=== PATIENT | female | born 1995 | race Caucasian/White ===

== ENCOUNTER 2016-10-18 03:28 | Emergency (ER) | payer OTHER ==
[2016-10-18 03:39] VITALS: RESP 20
[2016-10-18] MEDS ORDERED: IBUPROFEN 600 MG TAB PO STA (04:18)
[2016-10-18] MEDS ORDERED: ONDANSETRON ODT 4 MG TAB PO STA (04:22)
--- NOTE | 2016-10-18 04:54 | XR ---
EXAMINATION TYPE: XR chest 2V DATE OF EXAM: 10/18/2016 4:32 AM COMPARISON: 07/05/2016 HISTORY: Upper back pain TECHNIQUE: Frontal and lateral views of the chest are obtained. FINDINGS: There is no focal air space opacity, pleural effusion, or pneumothorax seen. The cardiac silhouette size is within normal limits. The osseous structures are intact. IMPRESSION: 1. No acute cardiopulmonary process. 2. No significant interval change.
[2016-10-18 05:25] VITALS: BP 118/61; PULSE 91; TEMP 98.3
--- NOTE | 2016-10-18 05:25 | ED ---
Back Pain HPI - General Chief Complaint: Back Pain/Injury Stated Complaint: Shoulder Pain Time Seen by Provider: 10/18/16 03:59 Source: patient - History of Present Illness Initial Comments: This patient is a 21-year-old woman who states that about 3 and afternoon she noticed pain just below her left scapula, that she is describing as an aching, constant, moderate, but worse with moving. She states that she went to work and tried to work but that the pain was too much. MD Complaint: back injury Onset/Timin -: hour(s) Place: home Radiation: none Severity: moderate Quality: aching Consistency: constant Improves With: none Worsens With: movement Associated Symptoms: denies other symptoms - Related Data Home Medications Medication Instructions Recorded Confirmed Hydralazine (Unknown Dose) 1 tab PO DAILY PRN 07/05/16 10/18/16 Levomilnacipran Hydrochloride 40 mg PO PC-LUNCH 07/05/16 10/18/16 [Fetzima] Previous Rx's Medication Instructions Recorded Ibuprofen [Motrin] 600 mg PO Q8HR PRN #20 tab 10/18/16 Allergies Allergy/AdvReac Type Severity Reaction Status Date / Time DUST Allergy Unknown SNEEZING, Uncoded 10/18/16 03:39 RUNNY NOSE. Review of Systems ROS Statement: Those systems with pertinent positive or pertinent negative responses have been documented in the HPI. ROS Other: All systems not noted in ROS Statement are negative. Constitutional: Denies: fever, chills Respiratory: Denies: cough, dyspnea, wheezes, hemoptysis Cardiovascular: Denies: chest pain, palpitations, edema, syncope Gastrointestinal: Denies: abdominal pain Genitourinary: Denies: dysuria, hematuria, discharge, abnormal menses Musculoskeletal: Reports: as per HPI, back pain Skin: Denies: rash Neurological: Denies: headache Past Medical History Past Medical History: No Reported History History of Any Multi-Drug Resistant Organisms: None Reported Past Surgical History: No Surgical Hx Reported Past Anesthesia/Blood Transfusion Reactions: No Reported Reaction Past Psychological History: Depression Smoking Status: Never smoker Past Alcohol Use History: Occasional Past Drug Use History: None Reported - Past Family History Mother Family Medical History: No Reported History General Exam General appearance: alert, in no apparent distress Head exam: Present: atraumatic, normocephalic Respiratory exam: Present: normal lung sounds bilaterally. Absent: respiratory distress, wheezes, rales, rhonchi, stridor Cardiovascular Exam: Present: regular rate, normal rhythm, normal heart sounds. Absent: systolic murmur, diastolic murmur, rubs, gallop GI/Abdominal exam: Present: soft. Absent: distended, tenderness, guarding, rebound Extremities exam: Absent: pedal edema, calf tenderness Back exam: Present: tenderness, other (Just inferior and towards the lateral aspect of the scapula the patient does have 2 small early contusions. Palpation there does reproduce the patient's pains. No palpable bony deformity. ). Absent: CVA tenderness (R), CVA tenderness (L), vertebral tenderness Neurological exam: Present: alert, normal gait Skin exam: Present: warm, dry, intact, normal color. Absent: rash Course Vital Signs 10/18/16 10/18/16 03:35 05:24 Temperature 97.3 F L 98.3 F Pulse Rate 120 H 91 Respiratory 20 20 Rate Blood Pressure 123/64 118/61 O2 Sat by Pulse 98 98 Oximetry Disposition Clinical Impression: Contusion Disposition: HOME SELF-CARE Condition: Good Instructions: Contusion in Adults (ED) Prescriptions: Ibuprofen [Motrin] 600 mg PO Q8HR PRN #20 tab PRN Reason: Pain Referrals: Maru Gan MD [Primary Care Provider] - 1-2 days
== END 2016-10-18 05:43 | disposition home or self-care (01) ==
LOC: EC 03:28
DX: S20.222A Contusion of left back wall of thorax, initial encounter (principal); Z91.048 Other nonmedicinal substance allergy status; F32.9 Major depressive disorder, single episode, unspecified; X58.XXXA Exposure to other specified factors, initial encounter
CPT/HCPCS: 71020; 93005; 99283

== ENCOUNTER 2016-11-26 13:01 | Emergency (ER) | payer OTHER ==
[2016-11-26] MEDS ORDERED: KETOROLAC 30 MG/ML 1 ML VIAL IVP STA ×2 (13:23→15:59)
[2016-11-26] MEDS ORDERED: ONDANSETRON 4 MG/2 ML VIAL IVP STA (13:23)
[2016-11-26] MEDS ORDERED: MORPHINE SULFATE 4 MG/ML SYRINGE IVP STA (13:23)
--- NOTE | 2016-11-26 13:28 | ED ---
Abdominal Pain HPI - General Chief Complaint: Abdominal Pain Stated Complaint: Abdominal Pain Time Seen by Provider: 11/26/16 13:10 Source: patient, RN notes reviewed Mode of arrival: ambulatory Limitations: no limitations - History of Present Illness Initial Comments: 21-year-old female presents emergency Department chief complaint of right lower quadrant abdominal pain. Patient states that she's been having pain for one week. Patient was seen at [facility] and was told she had multiple ovarian cysts in the right. She states pain is worsening. Patient denies fever , chills. She states she's had some nausea denies vomiting, diarrhea, constipation. Patient states she gets double shots every 3 months states she has not had a menstrual cycle and 2 years. Patient states she's had no abdominal surgeries. Patient denies any dysuria or hematuria. - Related Data Home Medications Medication Instructions Recorded Confirmed Levomilnacipran Hydrochloride 40 mg PO PC-LUNCH 07/05/16 11/26/16 [Fetzima] Ibuprofen [Advil] 600 mg PO Q8HR PRN 11/26/16 11/26/16 traMADol HCL [Ultram] 50 mg PO Q4HR PRN 11/26/16 11/26/16 Allergies Allergy/AdvReac Type Severity Reaction Status Date / Time DUST Allergy Unknown SNEEZING, Uncoded 10/18/16 03:39 RUNNY NOSE. Review of Systems ROS Statement: Those systems with pertinent positive or pertinent negative responses have been documented in the HPI. ROS Other: All systems not noted in ROS Statement are negative. Past Medical History Past Medical History: No Reported History Additional Past Medical History / Comment(s): ovarian cyst History of Any Multi-Drug Resistant Organisms: None Reported Past Surgical History: No Surgical Hx Reported Past Anesthesia/Blood Transfusion Reactions: No Reported Reaction Past Psychological History: Depression Smoking Status: Never smoker Past Alcohol Use History: Occasional Past Drug Use History: None Reported - Past Family History Mother Family Medical History: No Reported History General Exam Limitations: no limitations General appearance: alert, in no apparent distress Head exam: Present: atraumatic, normocephalic, normal inspection Neck exam: Present: normal inspection, full ROM. Absent: tenderness, meningismus, lymphadenopathy Respiratory exam: Present: normal lung sounds bilaterally. Absent: respiratory distress, wheezes, rales, rhonchi, stridor Cardiovascular Exam: Present: regular rate, normal rhythm, normal heart sounds. Absent: systolic murmur, diastolic murmur, rubs, gallop, clicks GI/Abdominal exam: Present: soft, tenderness (mild to moderate tenderness lower quadrant), normal bowel sounds. Absent: distended, guarding, rebound, rigid Back exam: Absent: CVA tenderness (R) Neurological exam: Present: alert, oriented X3, CN II-XII intact Skin exam: Present: warm, dry, intact, normal color. Absent: rash Course Vital Signs 11/26/16 13:05 Temperature 97.2 F L Pulse Rate 122 H Respiratory 20 Rate Blood Pressure 134/92 O2 Sat by Pulse 100 Oximetry Medical Decision Making - Medical Decision Making 21-year-old male present emergency department for 1 week worth history of breath quadrant abdominal pain. Patient ultrasound shows multiple follicles no dominant cyst. Patient CT does not show any evidence of appendicitis though not fully visualized shows no inflammatory process. Patient's had no fever as normal white count. This less likely to be appendicitis. Patient does have large dilation of some loose of on that side, some stool. This may be related to bowel spasms. Patient will be given magnesium citrate to go home with and she is to follow-up with primary care physician. - Lab Data Result diagrams: 11/26/16 14:00 11/26/16 14:00 Lab Results 11/26/16 11/26/16 11/26/16 Range/Units 14:00 14:00 14:02 WBC 5.6 (3.8-10.6) k/uL RBC 4.64 (3.80-5.40) m/uL Hgb 14.2 (11.4-16.0) gm/dL Hct 41.7 (34.0-46.0) % MCV 89.8 (80.0-100.0) fL MCH 30.5 (25.0-35.0) pg MCHC 33.9 (31.0-37.0) g/dL RDW 12.7 (11.5-15.5) % Plt Count 213 (150-450) k/uL Neutrophils % 66 % Lymphocytes % 27 % Monocytes % 3 % Eosinophils % 1 % Basophils % 1 % Neutrophils # 3.7 (1.3-7.7) k/uL Lymphocytes # 1.5 (1.0-4.8) k/uL Monocytes # 0.2 (0-1.0) k/uL Eosinophils # 0.0 (0-0.7) k/uL Basophils # 0.0 (0-0.2) k/uL Sodium 143 (137-145) mmol/L Potassium 4.0 (3.5-5.1) mmol/L Chloride 109 H (98-107) mmol/L Carbon Dioxide 22 (22-30) mmol/L Anion Gap 12 mmol/L BUN 9 (7-17) mg/dL Creatinine 0.70 (0.52-1.04) mg/dL Est GFR (MDRD) Af Amer >60 (>60 ml/min/1.73 sqM) Est GFR (MDRD) Non-Af >60 (>60 ml/min/1.73 sqM) Glucose 84 (74-99) mg/dL Calcium 9.7 (8.4-10.2) mg/dL Total Bilirubin 0.7 (0.2-1.3) mg/dL AST 22 (14-36) U/L ALT 26 (9-52) U/L Alkaline Phosphatase 87 (38-126) U/L Total Protein 7.6 (6.3-8.2) g/dL Albumin 4.5 (3.5-5.0) g/dL Amylase 55 (30-110) U/L Lipase 98 (23-300) U/L Urine Color Urine Appearance (Clear) Urine pH (5.0-8.0) Ur Specific [place] (1.001-1.035) Urine Protein (Negative) Urine Glucose (UA) (Negative) Urine Ketones (Negative) Urine Blood (Negative) Urine Nitrate (Negative) Urine Bilirubin (Negative) Urine Urobilinogen (<2.0) mg/dL Ur Leukocyte Esterase (Negative) Urine HCG, Qual Not Detected (Not Detectd) 11/26/16 Range/Units 14:02 WBC (3.8-10.6) k/uL RBC (3.80-5.40) m/uL Hgb (11.4-16.0) gm/dL Hct (34.0-46.0) % MCV (80.0-100.0) fL MCH (25.0-35.0) pg MCHC (31.0-37.0) g/dL RDW (11.5-15.5) % Plt Count (150-450) k/uL Neutrophils % % Lymphocytes % % Monocytes % % Eosinophils % % Basophils % % Neutrophils # (1.3-7.7) k/uL Lymphocytes # (1.0-4.8) k/uL Monocytes # (0-1.0) k/uL Eosinophils # (0-0.7) k/uL Basophils # (0-0.2) k/uL Sodium (137-145) mmol/L Potassium (3.5-5.1) mmol/L Chloride (98-107) mmol/L Carbon Dioxide (22-30) mmol/L Anion Gap mmol/L BUN (7-17) mg/dL Creatinine (0.52-1.04) mg/dL Est GFR (MDRD) Af Amer (>60 ml/min/1.73 sqM) Est GFR (MDRD) Non-Af (>60 ml/min/1.73 sqM) Glucose (74-99) mg/dL Calcium (8.4-10.2) mg/dL Total Bilirubin (0.2-1.3) mg/dL AST (14-36) U/L ALT (9-52) U/L Alkaline Phosphatase (38-126) U/L Total Protein (6.3-8.2) g/dL Albumin (3.5-5.0) g/dL Amylase (30-110) U/L Lipase (23-300) U/L Urine Color Yellow Urine Appearance Clear (Clear) Urine pH 7.5 (5.0-8.0) Ur Specific [place] 1.011 (1.001-1.035) Urine Protein Negative (Negative) Urine Glucose (UA) Negative (Negative) Urine Ketones Negative (Negative) Urine Blood Negative (Negative) Urine Nitrate Negative (Negative) Urine Bilirubin Negative (Negative) Urine Urobilinogen <2.0 (<2.0) mg/dL Ur Leukocyte Esterase Negative (Negative) Urine HCG, Qual (Not Detectd) Disposition Clinical Impression: Abdominal pain Disposition: HOME SELF-CARE Condition: Stable Instructions: Abdominal Pain (ED) Additional Instructions: Please return to the Emergency Department if symptoms worsen or any other concerns. Time of Disposition: 16:01
[2016-11-26 14:11] LABS: Basophils % (A) 1 %; CH 30.2; CHCM 33.8; Eosinophils % (A) 1 %; HCT 41.7 % (34.0-46.0); HDW 2.36; HGB 14.2 gm/dL (11.4-16.0); Luc # (Auto) 0.12; Luc % (Auto) 2; Lymphocytes # (A) 1.5 k/uL (1.0-4.8); Lymphocytes % (A) 27 %; MCH 30.5 pg (25.0-35.0); MCHC 33.9 g/dL (31.0-37.0); MCV 89.8 fL (80.0-100.0); Mean Platelet Volume 7.8; Monocytes # (A) 0.2 k/uL (0-1.0); Monocytes % (A) 3 %; Neutrophils # (A) 3.7 k/uL (1.3-7.7); Neutrophils % (A) 66 %; RBC 4.64 m/uL (3.80-5.40); RDW 12.7 % (11.5-15.5); WBC 5.6 k/uL (3.8-10.6); WBC (Perox) 5.48
[2016-11-26 14:14] LABS: Appearance,Urine Clear (Clear); Bilirubin,Urine Negative (Negative); Glucose,Urine (UA) Negative (Negative); Ketones,Urine Negative (Negative); Leukocyte Esterase,Urine Negative (Negative); Nitrite,Urine Negative (Negative); PH, Urine 7.5 (5.0-8.0); Protein,Urine Negative (Negative); Specific Gravity,Urine 1.011 (1.001-1.035); UA Billing (MACRO vs. MICRO) CHEM; Urobilinogen,Urine <2.0 mg/dL (<2.0)
[2016-11-26 14:26] LABS: ALT 26 U/L (9-52); AST 22 U/L (14-36); Alkaline Phosphatase 87 U/L (38-126); Amylase 55 U/L (30-110); Anion Gap 12 mmol/L; Blood Urea Nitrogen 9 mg/dL (7-17); Calcium 9.7 mg/dL (8.4-10.2); Carbon Dioxide 22 mmol/L (22-30); Chloride 109 mmol/L (98-107); Glucose 84 mg/dL (74-99); Non-African American GFR(MDRD) >60 (>60 ml/min/1.73 sqM); Sodium 143 mmol/L (137-145); Total Bilirubin 0.7 mg/dL (0.2-1.3); Total Protein 7.6 g/dL (6.3-8.2)
--- NOTE | 2016-11-26 15:04 | US ---
EXAMINATION TYPE: US transvaginal DATE OF EXAM: 11/26/2016 2:28 PM COMPARISON: NONE CLINICAL HISTORY: Pain. Right pelvic pain x 1 week, getting worse. TECHNIQUE: Transvaginal (TV) Date of LMP: unknown, patient on Depo shot EXAM MEASUREMENTS: Uterus: 5.4 x 2.7 x 3.8 cm Endometrial Stripe: 0.1 cm Right Ovary: 2.5 x 1.7 x 2.6 cm Left Ovary: 2.3 x 1.5 x 1.5 cm FINDINGS: 1. Uterus: Anteverted 2. Endometrium: wnl 3. Right Ovary: multiple follicles 4. Left Ovary: follicles Spectral, color and waveform doppler imaging shows good arterial and venous flow within the ovaries ; there is no evidence for ovarian torsion. 5. Bilateral Adnexa: appears wnl 6. Posterior cul-de-sac: wnl IMPRESSION: 1. No acute process.
[2016-11-26] MEDS ORDERED: RX INFO: IV CONTRAST WAS GIVEN 1 EACH MISC MISCELLANE PRN (15:08)
--- NOTE | 2016-11-26 15:41 | CT ---
EXAMINATION TYPE: CT abdomen pelvis w con DATE OF EXAM: 11/26/2016 3:27 PM COMPARISON: NONE INDICATION: Right lower quadrant pain x 6 days with nausea and vomiting. DLP: 281.90 mGycm, Automated exposure control for dose reduction was used. CONTRAST: 100 mL of Omnipaque 300. Study performed without Oral Contrast TECHNIQUE: Axial images were obtained from above the diaphragm to the pubic rami in the axial plane a t 5 mm thick sections. Reconstructed images are reviewed on the computer in the coronal plane. FINDINGS: Limited CT sections are obtained the lung bases. The lung bases are clear. CT ABDOMEN: Liver: Normal Spleen: Normal Pancreas: Normal Adrenal glands: The adrenal glands are normal. Gallbladder: Normal Kidneys: No masses are evident. No hydronephrosis is present. No cysts are present. Delayed images were obtained through the kidneys, which remain unremarkable. Aorta: Normal Inferior vena cava: Normal. CT PELVIS: Loops of bowel within the abdomen and pelvis are normal. Appendix: Not clearly identified. No suspicious dilated tubular structure inflammatory change or brit[place] cecal fluid collection is evident. Urinary bladder: Normal. Genitourinary structures: Uterus and adnexal regions are unremarkable. Osseous structures: No suspicious lytic or sclerotic lesions. IMPRESSIONS: 1. No suspicious etiology for right lower quadrant pain is identified. 2. Appendix is not clearly identified although no secondary suspicious findings for acute appendiciti s are evident. Clinical management of any suspicion for acute appendicitis is recommended.
[2016-11-26] MEDS ORDERED: MAGNESIUM CITRATE 296 ML BOTTLE PO ONE (15:59)
[2016-11-26 16:48] VITALS: BP 108/57; PULSE 73; RESP 18; TEMP 98.8
== END 2016-11-26 16:48 | disposition home or self-care (01) ==
LOC: EC 13:01
DX: R10.31 Right lower quadrant pain (principal); Z91.048 Other nonmedicinal substance allergy status; F32.9 Major depressive disorder, single episode, unspecified; Z79.899 Other long term (current) drug therapy
CPT/HCPCS: 96374 ×2; 96375 ×3; 96376 ×2; 99284 ×2; 36415; 80053; 82150; 83690; 85025; 81003; 81025; 93975; 76830; 74177; J2270; J2405; J1885; Q9967

== ENCOUNTER → 2016-12-20 | Outpatient (CLI) | payer OTHER ==
--- NOTE | 2016-12-20 14:57 | NM ---
EXAMINATION TYPE: NM hepatobiliary w EF DATE OF EXAM: 12/20/2016 2:48 PM COMPARISON: CT abdomen pelvis 26 November 2016 HISTORY: Cholecystitis, right upper quadrant pain TECHNIQUE: After the intravenous administration of 5.28 mCi Tc 99m Mebrofenin hepatobiliary scintigra phy is performed. Immediate images post injection. FINDINGS: There is satisfactory initial accumulation of tracer by the liver. The gallbladder is visualized wit hin 4 minutes. The small bowel activity is noted within 24 minutes. At one hour 8 ounces of oral en sure plus is given to mimic CCK and gallbladder ejection fraction is calculated at 56 %, in the jignesh l range. Therefore there is no scintigraphic evidence of cystic or common bile duct obstruction to s uggest acute cholecystitis or gallbladder dyskinesia. IMPRESSION: Exam is within normal limits.
== END | disposition home or self-care (01) ==
LOC: RADNMMAIN 12:49
PROVIDERS: ATTEND Surgery
DX: K81.1 Chronic cholecystitis (principal)
CPT/HCPCS: 78226; A9537

== ENCOUNTER 2018-07-07 17:13 | Emergency (ER) | payer OTHER ==
[2018-07-07 18:16] LABS: Appearance,Urine Cloudy (Clear); Bacteria,Urine Few /hpf; Bilirubin,Urine Negative (Negative); Blood,Urine Negative (Negative); Color,Urine Yellow; Glucose,Urine (UA) Negative (Negative); Ketones,Urine Trace (Negative); Leukocyte Esterase,Urine Small (Negative); Mucus,Urine Many /hpf; Nitrite,Urine Negative (Negative); PH, Urine 5.5 (5.0-8.0); Protein,Urine Trace (Negative); RBC,Urine 4 /hpf (0-5); Specific Gravity,Urine 1.024 (1.001-1.035); Squamous Epithelial Cell,Urine 3 /hpf (0-4); Urobilinogen,Urine <2.0 mg/dL (<2.0); WBC,Urine 3 /hpf (0-5)
[2018-07-07 18:20] LABS: Basophils % (A) 0 %; Eosinophils # (A) 0.1 k/uL (0-0.7); Eosinophils % (A) 1 %; HCT 41.4 % (34.0-46.0); HGB 13.9 gm/dL (11.4-16.0); Lymphocytes # (A) 1.9 k/uL (1.0-4.8); Lymphocytes % (A) 27 %; MCH 30.3 pg (25.0-35.0); MCHC 33.7 g/dL (31.0-37.0); MCV 89.8 fL (80.0-100.0); Mean Platelet Volume 7.3; Monocytes # (A) 0.5 k/uL (0-1.0); Monocytes % (A) 7 %; Neutrophils # (A) 4.4 k/uL (1.3-7.7); Neutrophils % (A) 63 %; Platelet Count 234 k/uL (150-450); RBC 4.61 m/uL (3.80-5.40); RDW 12.6 % (11.5-15.5)
[2018-07-07 18:28] LABS: ALT 21 U/L (9-52); AST 24 U/L (14-36); Albumin 4.2 g/dL (3.5-5.0); Alkaline Phosphatase 63 U/L (38-126); Amylase 51 U/L (30-110); Anion Gap 7 mmol/L; Blood Urea Nitrogen 8 mg/dL (7-17); Calcium 9.5 mg/dL (8.4-10.2); Carbon Dioxide 24 mmol/L (22-30); Chloride 109 mmol/L (98-107); Glucose 68 mg/dL (74-99); Lipase 55 U/L (23-300); Potassium 3.6 mmol/L (3.5-5.1); Sodium 140 mmol/L (137-145); Total Bilirubin 0.5 mg/dL (0.2-1.3); Total Protein 7.1 g/dL (6.3-8.2)
[2018-07-07 19:33] VITALS: RESP 16
--- NOTE | 2018-07-07 19:41 | XR ---
EXAMINATION TYPE: XR KUB DATE OF EXAM: 07/07/2018 COMPARISON: 04/08/2012 HISTORY: Abdominal pain TECHNIQUE: 2 views upright FINDINGS: Bowel gas pattern is normal. There is no sign of intestinal obstruction or pneumoperitoneum . Fecal pattern is normal. Lung bases are clear. There are no pathologic calcifications. There is no sign of a mass. IMPRESSION: Nonacute abdomen. No change.
--- NOTE | 2018-07-07 19:49 | ED ---
Abdominal Pain HPI - General Source: patient, RN notes reviewed Mode of arrival: ambulatory Limitations: no limitations <Jewell Morelos - Last Filed: 07/07/18 20:06> <Delphine Alonzo - Last Filed: 07/07/18 22:08> - General Chief Complaint: Abdominal Pain Stated Complaint: Abd Pain Time Seen by Provider: 07/07/18 19:48 - History of Present Illness Initial Comments: This is a 23-year-old female who presents to the emergency department with chief complaint of abdominal pain. Patient reports intermittent, sharp supraumbilical pain for the past 2 weeks. She states that pain comes on randomly. She also reports nausea and a decreased appetite. Patient states that she initially believed she was . She states that she took a test and it was negative. She repeated the test and it was positive. She repeated it a third time and it was again negative. Patient denies fevers or chills, chest pain or shortness of breath, vomiting or diarrhea. (Jewell Morelos) - Related Data Home Medications Medication Instructions Recorded Confirmed FLUoxetine HCL [PROzac] 20 mg PO DAILY 07/07/18 07/07/18 QUEtiapine [SEROquel] 50 mg PO HS 07/07/18 07/07/18 Allergies Allergy/AdvReac Type Severity Reaction Status Date / Time lamotrigine [From Lamictal] Allergy Rash/Hives Verified 07/07/18 19:10 DUST Allergy Unknown SNEEZING, Uncoded 10/18/16 03:39 RUNNY NOSE. Review of Systems ROS Other: All systems not noted in ROS Statement are negative. <Jewell Morelos - Last Filed: 07/07/18 20:06> ROS Other: All systems not noted in ROS Statement are negative. <Delphine Alonzo - Last Filed: 07/07/18 22:08> ROS Statement: Those systems with pertinent positive or pertinent negative responses have been documented in the HPI. Past Medical History Past Medical History: No Reported History Additional Past Medical History / Comment(s): ovarian cyst History of Any Multi-Drug Resistant Organisms: None Reported Past Surgical History: No Surgical Hx Reported Past Anesthesia/Blood Transfusion Reactions: No Reported Reaction Past Psychological History: Anxiety, Bipolar, Depression Smoking Status: Never smoker Past Alcohol Use History: Occasional Past Drug Use History: None Reported - Past Family History Mother Family Medical History: No Reported History <Jewell Morelos - Last Filed: 07/07/18 20:06> General Exam Limitations: no limitations <Jewell Morelos - Last Filed: 07/07/18 20:06> <Delphine Alonzo - Last Filed: 07/07/18 22:08> - General Exam Comments Initial Comments: General: Awake and alert, well-developed; in no apparent distress. HEENT: Head atraumatic, normocephalic. Pupils are equal, round and reactive to light. Extraocular movements intact. Oropharynx moist without erythema or exudate. Neck: Supple. Normal ROM. Cardiovascular: Regular rate and rhythm. No murmurs, rubs or gallops. Chest symmetrical. Respiratory: Lungs clear to auscultation bilaterally. No wheezes, rales or rhonchi. Normal respiratory effort with no use of accessory muscles. Abdomen: Soft, non-tender, non-distended. No rigidity, rebound or guarding. Normal bowel sounds in all 4 quadrants. Musculoskeletal: Normal ROM, no tenderness bilateral upper and lower extremities. Ambulating normally. Skin: [place], warm and dry without rashes or lesions. Neurological: Alert and oriented x3. CN II-XII grossly intact. Speech is fluent and answers are appropriate. No focal neuro deficits. Psychiatric: Normal mood and affect. No overt signs of depression or anxiety noted. (TamyJewell Julian) Vital Signs 07/07/18 07/07/18 07/07/18 17:48 19:32 20:25 Temperature 98.3 F 98.7 F Pulse Rate 89 78 Respiratory 18 16 16 Rate Blood Pressure 127/75 121/68 O2 Sat by Pulse 100 99 Oximetry Medical Decision Making - Lab Data Result diagrams: 07/07/18 18:10 07/07/18 18:10 - Radiology Data Radiology results: report reviewed <Jewell Morelos - Last Filed: 07/07/18 20:06> - Lab Data Result diagrams: 07/07/18 18:10 07/07/18 18:10 <Delphine Alonzo - Last Filed: 07/07/18 22:08> - Medical Decision Making This is a 23-year-old female who presents to emergency department with chief complaint of abdominal pain. Patient reports intermittent sharp supraumbilical abdominal pain for the past 2 weeks. Patient states that she felt she was so took 3 tests. She reports one test was positive and the others were negative. On physical examination, patient does not appear acutely ill. Her abdomen is soft and non-tender. CBC, CMP and UA revealed no significant abnormalities. Urine hCG is detected. This was discussed with patient. Offered ultrasound for further evaluation, however patient declines. She states that she will contact her T[facility] CL[employer]BER, Dr. Eaton in the morning. Patient's vital signs have been stable and she is in no acute distress. She will be discharged home at this time. She is in agreement with plan and voices understanding. All questions were answered. (Jewell Morelos) I was available for consultation in the emergency department. The history and physical exam were done by the midlevel provider. I was consulted for this patient's care. I reviewed the case with the midlevel provider and based on their presentation of the patient, I agree with the assessment, medical decision making and plan of care as documented. (Delphine Alonzo) - Lab Data Lab Results 07/07/18 07/07/18 07/07/18 Range/Units 18:02 18:02 18:10 WBC (3.8-10.6) k/uL RBC (3.80-5.40) m/uL Hgb (11.4-16.0) gm/dL Hct (34.0-46.0) % MCV (80.0-100.0) fL MCH (25.0-35.0) pg MCHC (31.0-37.0) g/dL RDW (11.5-15.5) % Plt Count (150-450) k/uL Neutrophils % % Lymphocytes % % Monocytes % % Eosinophils % % Basophils % % Neutrophils # (1.3-7.7) k/uL Lymphocytes # (1.0-4.8) k/uL Monocytes # (0-1.0) k/uL Eosinophils # (0-0.7) k/uL Basophils # (0-0.2) k/uL Sodium 140 (137-145) mmol/L Potassium 3.6 (3.5-5.1) mmol/L Chloride 109 H (98-107) mmol/L Carbon Dioxide 24 (22-30) mmol/L Anion Gap 7 mmol/L BUN 8 (7-17) mg/dL Creatinine 0.56 (0.52-1.04) mg/dL Est GFR (CKD-EPI)AfAm >90 (>60 ml/min/1.73 sqM) Est GFR (CKD-EPI)NonAf >90 (>60 ml/min/1.73 sqM) Glucose 68 L (74-99) mg/dL Calcium 9.5 (8.4-10.2) mg/dL Total Bilirubin 0.5 (0.2-1.3) mg/dL AST 24 (14-36) U/L ALT 21 (9-52) U/L Alkaline Phosphatase 63 (38-126) U/L Total Protein 7.1 (6.3-8.2) g/dL Albumin 4.2 (3.5-5.0) g/dL Amylase 51 (30-110) U/L Lipase 55 (23-300) U/L Urine Color Yellow Urine Appearance Cloudy H (Clear) Urine pH 5.5 (5.0-8.0) Ur Specific [place] 1.024 (1.001-1.035) Urine Protein Trace H (Negative) Urine Glucose (UA) Negative (Negative) Urine Ketones Trace H (Negative) Urine Blood Negative (Negative) Urine Nitrite Negative (Negative) Urine Bilirubin Negative (Negative) Urine Urobilinogen <2.0 (<2.0) mg/dL Ur Leukocyte Esterase Small H (Negative) Urine RBC 4 (0-5) /hpf Urine WBC 3 (0-5) /hpf Ur Squamous Epith Cells 3 (0-4) /hpf Urine Bacteria Few H (None) /hpf Urine Mucus Many H (None) /hpf Urine HCG, Qual Detected (Not Detectd) 07/07/18 Range/Units 18:10 WBC 7.0 (3.8-10.6) k/uL RBC 4.61 (3.80-5.40) m/uL Hgb 13.9 (11.4-16.0) gm/dL Hct 41.4 (34.0-46.0) % MCV 89.8 (80.0-100.0) fL MCH 30.3 (25.0-35.0) pg MCHC 33.7 (31.0-37.0) g/dL RDW 12.6 (11.5-15.5) % Plt Count 234 (150-450) k/uL Neutrophils % 63 % Lymphocytes % 27 % Monocytes % 7 % Eosinophils % 1 % Basophils % 0 % Neutrophils # 4.4 (1.3-7.7) k/uL Lymphocytes # 1.9 (1.0-4.8) k/uL Monocytes # 0.5 (0-1.0) k/uL Eosinophils # 0.1 (0-0.7) k/uL Basophils # 0.0 (0-0.2) k/uL Sodium (137-145) mmol/L Potassium (3.5-5.1) mmol/L Chloride (98-107) mmol/L Carbon Dioxide (22-30) mmol/L Anion Gap mmol/L BUN (7-17) mg/dL Creatinine (0.52-1.04) mg/dL Est GFR (CKD-EPI)AfAm (>60 ml/min/1.73 sqM) Est GFR (CKD-EPI)NonAf (>60 ml/min/1.73 sqM) Glucose (74-99) mg/dL Calcium (8.4-10.2) mg/dL Total Bilirubin (0.2-1.3) mg/dL AST (14-36) U/L ALT (9-52) U/L Alkaline Phosphatase (38-126) U/L Total Protein (6.3-8.2) g/dL Albumin (3.5-5.0) g/dL Amylase (30-110) U/L Lipase (23-300) U/L Urine Color Urine Appearance (Clear) Urine pH (5.0-8.0) Ur Specific [place] (1.001-1.035) Urine Protein (Negative) Urine Glucose (UA) (Negative) Urine Ketones (Negative) Urine Blood (Negative) Urine Nitrite (Negative) Urine Bilirubin (Negative) Urine Urobilinogen (<2.0) mg/dL Ur Leukocyte Esterase (Negative) Urine RBC (0-5) /hpf Urine WBC (0-5) /hpf Ur Squamous Epith Cells (0-4) /hpf Urine Bacteria (None) /hpf Urine Mucus (None) /hpf Urine HCG, Qual (Not Detectd) - Radiology Data X-ray KUB impression: Nonacute abdomen. No change. (Jewell Morelos) Disposition Is patient prescribed a controlled substance at d/c from ED?: No Time of Disposition: 20:22 <Jewell Morelos - Last Filed: 07/07/18 20:06> <Delphine Alonzo - Last Filed: 07/07/18 22:08> Clinical Impression: Abdominal pain affecting Disposition: HOME SELF-CARE Condition: Good Instructions: Abdominal Pain in (ED) Additional Instructions: As discussed, please follow-up with your [employer] within 1-2 days. Please follow up with primary care provider within 1-2 days. Return to emergency department if symptoms should worsen or any concerns arise. Referrals: Maru Gan MD [Primary Care Provider] - 1-2 days Addendum entered and electronically signed by Jewell Morelos, SHASHANK 07/07/18 20: 30: Advanced triage protocol was used for patient. Abdominal pain set was ordered by the nurse. This includes an x-ray KUB. Patient underwent x-ray before I was able to evaluate patient or review labs. Patient stated to me and the nurse that the x-ray tire service technician told her that her test came back negative and took her to x-ray.
[2018-07-07 20:35] VITALS: BP 121/68; PULSE 78; TEMP 98.7
== END 2018-07-07 20:25 | disposition home or self-care (01) ==
LOC: EC 17:13
DX: O99.89 Other specified diseases and conditions complicating pregnancy, childbirth and the puerperium (principal); R10.33 Periumbilical pain; R11.0 Nausea; R63.0 Anorexia; O99.340 Other mental disorders complicating pregnancy, unspecified trimester; F41.9 Anxiety disorder, unspecified; F32.9 Major depressive disorder, single episode, unspecified; Z53.29 Procedure and treatment not carried out because of patient's decision for other reasons; Z79.899 Other long term (current) drug therapy; Z88.8 Allergy status to other drugs, medicaments and biological substances; Z91.048 Other nonmedicinal substance allergy status; Z3A.00 Weeks of gestation of pregnancy not specified
CPT/HCPCS: 36415; 74018; 80053; 81001; 81025; 82150; 83690; 85025; 99284

== ENCOUNTER → 2018-07-09 | Outpatient (CLI) | payer OTHER | END | disposition home or self-care (01) | LOC: LABWHC1 12:42 | PROVIDERS: ATTEND Obstetrics & Gynecology | DX: O20.0 Threatened abortion (principal) | CPT/HCPCS: 36415; 84702; 86850; 86900; 86901 ==

== ENCOUNTER 2018-07-12 22:58 | Emergency (ER) | payer OTHER ==
[2018-07-12] MEDS ORDERED: SODIUM CHLORIDE 0.9% 1,000 ML IV STA (23:31)
[2018-07-12] MEDS ORDERED: ACETAMINOPHEN IV (For NPO) 1,000 MG in EMPTY BAG 1 BAG IVPB STA (23:31)
--- NOTE | 2018-07-12 23:46 | ED ---
General Adult HPI - General Source: patient, family, RN notes reviewed, old records reviewed Mode of arrival: ambulatory Limitations: no limitations <Asael Brown - Last Filed: 07/13/18 02:15> <Delphine Alonzo - Last Filed: 07/13/18 02:43> - General Chief complaint: Abdominal Pain Stated complaint: abd pain,headache,~5 wks Time Seen by Provider: 07/12/18 23:16 - History of Present Illness Initial comments: Patient is a 23-year-old female who is G2, P1, approximately 5 weeks by last been show cycle, presented to the emergency room today with a chief complaint of a fever, right lower quadrant pain. Patient does admit that she's been experiencing some [place] over the last few days and see her in the emergency room recently told that she was . Patient states that she's had increased pain in the right lower quadrant. She states that she had a fever that started tonight. She does admit that she took ibuprofen prior to coming here in the emergency room approximately 2 hours ago. Patient denies any vaginal bleeding or discharge. (Asael Brown) - Related Data Home Medications Medication Instructions Recorded Confirmed FLUoxetine HCL [PROzac] 20 mg PO DAILY 07/07/18 07/07/18 QUEtiapine [SEROquel] 50 mg PO HS 07/07/18 07/07/18 Allergies Allergy/AdvReac Type Severity Reaction Status Date / Time lamotrigine [From Lamictal] Allergy Rash/Hives Verified 07/12/18 23:14 DUST Allergy Unknown SNEEZING, Uncoded 07/12/18 23:14 RUNNY NOSE. Review of Systems ROS Other: All systems not noted in ROS Statement are negative. <Asael Brown - Last Filed: 07/13/18 02:15> ROS Other: All systems not noted in ROS Statement are negative. <Delphine Alonzo P - Last Filed: 07/13/18 02:43> ROS Statement: Those systems with pertinent positive or pertinent negative responses have been documented in the HPI. Past Medical History Past Medical History: No Reported History Additional Past Medical History / Comment(s): ovarian cyst History of Any Multi-Drug Resistant Organisms: None Reported Past Surgical History: No Surgical Hx Reported Past Anesthesia/Blood Transfusion Reactions: No Reported Reaction Past Psychological History: Anxiety, Bipolar, Depression Smoking Status: Never smoker Past Alcohol Use History: Occasional Past Drug Use History: None Reported - Past Family History Mother Family Medical History: No Reported History <Asael Brown - Last Filed: 07/13/18 02:15> General Exam Limitations: no limitations <Asael Brown - Last Filed: 07/13/18 02:15> <Delphine Alonzo - Last Filed: 07/13/18 02:43> - General Exam Comments Initial Comments: General: The patient is awake and alert, in no distress, and does not appear acutely ill. Eye: Extra-ocular movements are intact. No nystagmus. There is normal conjunctiva bilaterally. No signs of icterus. Ears, nose, mouth and throat: There are moist mucous membranes and no oral lesions. Neck: The neck is supple, there is no tenderness or JVD. Cardiovascular: There is a regular rate and rhythm. No murmur, rub or gallop is appreciated. Respiratory: Lungs are clear to auscultation, respirations are non-labored, breath sounds are equal. No wheezes, stridor, rales, or rhonchi. Gastrointestinal: Abdomen soft on palpation. Patient does have tenderness right lower quadrant. No rebound, guarding or CVA tenderness. Musculoskeletal: Normal ROM, no tenderness. Sensation intact. Strength 5/5. Pulses equal bilaterally 2+. Neurological: A&O x 3. CN II-XII intact, There are no obvious motor or sensory deficits. Coordination appears grossly intact. Speech is normal. Skin: Skin is warm and dry and no rashes or lesions are noted. Psychiatric: Cooperative, appropriate mood & affect, normal judgment. (Asael Brown) Vital Signs 07/12/18 07/13/18 23:11 01:34 Temperature 100.7 F H 98.3 F Pulse Rate 123 H 83 Respiratory 20 16 Rate Blood Pressure 93/47 93/53 O2 Sat by Pulse 100 98 Oximetry Medical Decision Making - Lab Data Result diagrams: 07/12/18 23:30 07/12/18 23:30 <Asael Brown - Last Filed: 07/13/18 02:15> - Lab Data Result diagrams: 07/12/18 23:30 07/12/18 23:30 <Delphine Alonzo - Last Filed: 07/13/18 02:43> - Medical Decision Making Case discussed in detail with attending physician Dr. Alonzo. Patient reexamined at this time shows no signs of distress. She is resting comfortably. Her abdomen soft on palpation. Patient's vitals much improved. Emergency room after IV Tylenol and IV fluids. Patient labs reviewed. Beta hCG is 3300. Patient's ultrasound of the right lower quadrant does show partially seen appendix there is no sign of inflammation. Patient's OB ultrasound does show evidence for a right-sided ovarian cyst. There is a most likely a gestational sac that is visualized. Adnexa is within normal limits. There is trace free fluid. No sign of an ectopic . Patient is advised close follow-up with her [facility] over the next 2 days. She states she does have an appointment coming up with Dr. Vincent. Patient is advised to have repeat beta hCG in 2 days return here to the emergency room for any symptoms increase worsen. She states understanding and is in agreement. (Asael Brown) I was available for consultation in the emergency department. The history and physical exam were done by the midlevel provider. I was consulted for this patient's care. I reviewed the case with the midlevel provider and based on their presentation of the patient, I agree with the assessment, medical decision making and plan of care as documented. (Delphine Alonzo) - Lab Data Lab Results 07/12/18 07/12/18 07/12/18 Range/Units 23:30 23:30 23:30 WBC 5.7 (3.8-10.6) k/uL RBC 4.81 (3.80-5.40) m/uL Hgb 14.2 (11.4-16.0) gm/dL Hct 42.9 (34.0-46.0) % MCV 89.0 (80.0-100.0) fL MCH 29.6 (25.0-35.0) pg MCHC 33.2 (31.0-37.0) g/dL RDW 12.3 (11.5-15.5) % Plt Count 200 (150-450) k/uL Neutrophils % 81 % Lymphocytes % 9 % Monocytes % 7 % Eosinophils % 0 % Basophils % 0 % Neutrophils # 4.6 (1.3-7.7) k/uL Lymphocytes # 0.5 L (1.0-4.8) k/uL Monocytes # 0.4 (0-1.0) k/uL Eosinophils # 0.0 (0-0.7) k/uL Basophils # 0.0 (0-0.2) k/uL Sodium 137 (137-145) mmol/L Potassium 4.0 (3.5-5.1) mmol/L Chloride 105 (98-107) mmol/L Carbon Dioxide 21 L (22-30) mmol/L Anion Gap 11 mmol/L BUN 8 (7-17) mg/dL Creatinine 0.62 (0.52-1.04) mg/dL Est GFR (CKD-EPI)AfAm >90 (>60 ml/min/1.73 sqM) Est GFR (CKD-EPI)NonAf >90 (>60 ml/min/1.73 sqM) Glucose 92 (74-99) mg/dL Plasma Lactic Acid Damian 1.0 (0.7-2.0) mmol/L Calcium 9.5 (8.4-10.2) mg/dL Total Bilirubin 0.3 (0.2-1.3) mg/dL AST 23 (14-36) U/L ALT 31 (9-52) U/L Alkaline Phosphatase 79 (38-126) U/L Total Protein 7.3 (6.3-8.2) g/dL Albumin 4.3 (3.5-5.0) g/dL Lipase 74 (23-300) U/L HCG, Quant 3316.7 mIU/mL Urine Color Urine Appearance (Clear) Urine pH (5.0-8.0) Ur Specific [place] (1.001-1.035) Urine Protein (Negative) Urine Glucose (UA) (Negative) Urine Ketones (Negative) Urine Blood (Negative) Urine Nitrite (Negative) Urine Bilirubin (Negative) Urine Urobilinogen (<2.0) mg/dL Ur Leukocyte Esterase (Negative) Urine RBC (0-5) /hpf Urine WBC (0-5) /hpf Ur Squamous Epith Cells (0-4) /hpf Urine Mucus (None) /hpf 07/12/18 Range/Units 23:30 WBC (3.8-10.6) k/uL RBC (3.80-5.40) m/uL Hgb (11.4-16.0) gm/dL Hct (34.0-46.0) % MCV (80.0-100.0) fL MCH (25.0-35.0) pg MCHC (31.0-37.0) g/dL RDW (11.5-15.5) % Plt Count (150-450) k/uL Neutrophils % % Lymphocytes % % Monocytes % % Eosinophils % % Basophils % % Neutrophils # (1.3-7.7) k/uL Lymphocytes # (1.0-4.8) k/uL Monocytes # (0-1.0) k/uL Eosinophils # (0-0.7) k/uL Basophils # (0-0.2) k/uL Sodium (137-145) mmol/L Potassium (3.5-5.1) mmol/L Chloride (98-107) mmol/L Carbon Dioxide (22-30) mmol/L Anion Gap mmol/L BUN (7-17) mg/dL Creatinine (0.52-1.04) mg/dL Est GFR (CKD-EPI)AfAm (>60 ml/min/1.73 sqM) Est GFR (CKD-EPI)NonAf (>60 ml/min/1.73 sqM) Glucose (74-99) mg/dL Plasma Lactic Acid Damian (0.7-2.0) mmol/L Calcium (8.4-10.2) mg/dL Total Bilirubin (0.2-1.3) mg/dL AST (14-36) U/L ALT (9-52) U/L Alkaline Phosphatase (38-126) U/L Total Protein (6.3-8.2) g/dL Albumin (3.5-5.0) g/dL Lipase (23-300) U/L HCG, Quant mIU/mL Urine Color Yellow Urine Appearance Clear (Clear) Urine pH 6.5 (5.0-8.0) Ur Specific [place] 1.026 (1.001-1.035) Urine Protein 1+ H (Negative) Urine Glucose (UA) Negative (Negative) Urine Ketones 1+ H (Negative) Urine Blood Negative (Negative) Urine Nitrite Negative (Negative) Urine Bilirubin Negative (Negative) Urine Urobilinogen 3.0 (<2.0) mg/dL Ur Leukocyte Esterase Negative (Negative) Urine RBC 1 (0-5) /hpf Urine WBC 2 (0-5) /hpf Ur Squamous Epith Cells 3 (0-4) /hpf Urine Mucus Many H (None) /hpf Disposition Is patient prescribed a controlled substance at d/c from ED?: No Time of Disposition: 02:19 <Asael Brown - Last Filed: 07/13/18 02:15> <Delphine Alonzo - Last Filed: 07/13/18 02:43> Clinical Impression: Threatened Disposition: HOME SELF-CARE Condition: Good Instructions: Threatened Miscarriage (ED) Additional Instructions: Please follow-up with [facility] and have repeat blood work done in 2 days. Please try to emergency room if any symptoms increase or worsen. Referrals: Maru Gan MD [Primary Care Provider] - 1-2 days Kiera Eaton MD [STAFF PHYSICIAN] - 1-2 days
[2018-07-13 00:10] LABS: Basophils % (A) 0 %; Eosinophils % (A) 0 %; HCT 42.9 % (34.0-46.0); HGB 14.2 gm/dL (11.4-16.0); Lymphocytes # (A) 0.5 k/uL (1.0-4.8); Lymphocytes % (A) 9 %; MCH 29.6 pg (25.0-35.0); MCHC 33.2 g/dL (31.0-37.0); Monocytes # (A) 0.4 k/uL (0-1.0); Monocytes % (A) 7 %; Neutrophils # (A) 4.6 k/uL (1.3-7.7); Neutrophils % (A) 81 %; Platelet Count 200 k/uL (150-450); RBC 4.81 m/uL (3.80-5.40); RDW 12.3 % (11.5-15.5); WBC 5.7 k/uL (3.8-10.6)
[2018-07-13 00:12] LABS: Appearance,Urine Clear (Clear); Bilirubin,Urine Negative (Negative); Blood,Urine Negative (Negative); Color,Urine Yellow; Glucose,Urine (UA) Negative (Negative); Ketones,Urine 1+ (Negative); Leukocyte Esterase,Urine Negative (Negative); Mucus,Urine Many /hpf; Nitrite,Urine Negative (Negative); PH, Urine 6.5 (5.0-8.0); Protein,Urine 1+ (Negative); RBC,Urine 1 /hpf (0-5); Specific Gravity,Urine 1.026 (1.001-1.035); Squamous Epithelial Cell,Urine 3 /hpf (0-4); WBC,Urine 2 /hpf (0-5)
[2018-07-13 00:21] LABS: ALT 31 U/L (9-52); AST 23 U/L (14-36); Albumin 4.3 g/dL (3.5-5.0); Alkaline Phosphatase 79 U/L (38-126); Anion Gap 11 mmol/L; Blood Urea Nitrogen 8 mg/dL (7-17); Calcium 9.5 mg/dL (8.4-10.2); Carbon Dioxide 21 mmol/L (22-30); Chloride 105 mmol/L (98-107); Glucose 92 mg/dL (74-99); Lipase 74 U/L (23-300); Sodium 137 mmol/L (137-145); Total Bilirubin 0.3 mg/dL (0.2-1.3); Total Protein 7.3 g/dL (6.3-8.2)
[2018-07-13 00:37] LABS: HCG,Quantitative Serum 3316.7 mIU/mL
[2018-07-13 01:35] VITALS: BP 93/53; PULSE 83; RESP 16; TEMP 98.3
--- NOTE | 2018-07-13 01:38 | US ---
EXAMINATION TYPE: US abdomen APPY DATE OF EXAM: 07/13/2018 COMPARISON: NONE CLINICAL HISTORY: Pain. APPENDIX AP Diameter (normal < 6mm): 4 mm Measured outer wall to outer wall. Is the appendix seen in its entirety from the proximal cecum to distal end: No Is the appendix compressible: Yes Does the appendix wall appear hypervascular: No Is an appendicolith present: No Is there inflammatory changes or free fluid present: No IMPRESSION: Appendix is partly seen and appears normal. This measures 2.8 x 0.4 cm. No solid or cyst ic mass. No free fluid.
--- NOTE | 2018-07-13 01:40 | US ---
EXAMINATION TYPE: Transabdominal DATE OF EXAM: 12/31/17 COMPARISON: NONE CLINICAL HISTORY: Pain. EXAM PERFORMED: Transvaginal (TV) and Transabdominal (TA) EXAM MEASUREMENTS: GESTATIONAL AGE / DATING Physician Established: Not yet established Dates by LMP: (5 weeks/4 days) EDC: 03/11/2019 Dates by First Scan: No previous this is first scan Dates by Current Scan for: Unable to date by today's study MATERNAL ANATOMY Uterus: 8.5 x 4.1 x 5.1 cm; Anteverted Endometrium: 1.3 cm; Prominent with cystic area likely gest sac Right Ovary: 4.3 x 3.1 x 3.2 cm; hypoechoic complex area with echogenic ring appears to be corpus lut eum (2.3 x 2.7 x 2.4 cm) Left Ovary: 2.7 x 1.2 x 1.3; wnl Post CDS / Adnexa: free fluid seen Presence of free fluid: yes Presence of corpus luteal cyst: Yes; Right ovary measuring 2.3 x 2.7 x 2.4 cm Presence of subchorionic bleed: No GESTATION / SURVEY MSD: 0.4 cm OOR IUP: No IUP seen at this time Date of LMP: 06/04/2018 Beta HcG (if available): 3316.7 IMPRESSION: There is 3 mm x 4 mm fundal endometrial fluid collection that could be early gestational sac. No adne xal mass. 2 cm cyst on the right ovary. No sign of ectopic . Trace free fluid in the pelvis.
== END 2018-07-13 02:25 | disposition home or self-care (01) ==
LOC: EC 22:58
DX: O20.0 Threatened abortion (principal); Z3A.01 Less than 8 weeks gestation of pregnancy; O99.89 Other specified diseases and conditions complicating pregnancy, childbirth and the puerperium; R50.9 Fever, unspecified; N83.201 Unspecified ovarian cyst, right side; O99.341 Other mental disorders complicating pregnancy, first trimester; F31.9 Bipolar disorder, unspecified; F41.9 Anxiety disorder, unspecified; Z79.899 Other long term (current) drug therapy; Z88.5 Allergy status to narcotic agent; Z91.09 Other allergy status, other than to drugs and biological substances
CPT/HCPCS: 36415; 80053; 83605; 83690; 85025; 81001; 84702; 87040; 87086; 76705; 76801; 76817; 99284; 96365; 96366; J0131

== ENCOUNTER → 2018-07-14 | Outpatient (CLI) | payer OTHER | END | disposition home or self-care (01) | LOC: LABWHC1 11:35 | PROVIDERS: ATTEND Physician Assistant | DX: Z34.90 Encounter for supervision of normal pregnancy, unspecified, unspecified trimester (principal); Z3A.00 Weeks of gestation of pregnancy not specified | CPT/HCPCS: 36415; 84702 ==

== ENCOUNTER 2018-07-16 11:38 | Emergency (ER) | payer OTHER ==
[2018-07-16 11:47] VITALS: RESP 18
[2018-07-16] MEDS ORDERED: METOCLOPRAMIDE 5 MG/ML 2 ML VIAL IVP STA (12:38)
[2018-07-16] MEDS ORDERED: diphenhydrAMINE 50 MG/ML 1 ML VIAL IVP STA (12:38)
[2018-07-16] MEDS ORDERED: SODIUM CHLORIDE 0.9% 1,000 ML IV STA ×2 (12:38)
[2018-07-16 12:57] LABS: Basophils % (A) 0 %; Eosinophils % (A) 0 %; HCT 42.9 % (34.0-46.0); HGB 14.2 gm/dL (11.4-16.0); Lymphocytes # (A) 1.5 k/uL (1.0-4.8); Lymphocytes % (A) 25 %; MCH 30.5 pg (25.0-35.0); MCHC 33.2 g/dL (31.0-37.0); Mean Platelet Volume 7.4; Monocytes # (A) 0.3 k/uL (0-1.0); Monocytes % (A) 5 %; Neutrophils % (A) 67 %; Platelet Count 195 k/uL (150-450); RBC 4.67 m/uL (3.80-5.40); RDW 12.3 % (11.5-15.5)
[2018-07-16 13:05] LABS: HCG,Qualitative Serum Detected
[2018-07-16 13:10] LABS: ALT 25 U/L (9-52); AST 24 U/L (14-36); Alkaline Phosphatase 76 U/L (38-126); Amylase 45 U/L (30-110); Anion Gap 12 mmol/L; Blood Urea Nitrogen 6 mg/dL (7-17); Calcium 9.3 mg/dL (8.4-10.2); Carbon Dioxide 23 mmol/L (22-30); Chloride 106 mmol/L (98-107); Glucose 79 mg/dL (74-99); Lipase 57 U/L (23-300); Potassium 4.1 mmol/L (3.5-5.1); Sodium 141 mmol/L (137-145); Total Bilirubin 0.3 mg/dL (0.2-1.3); Total Protein 7.2 g/dL (6.3-8.2)
--- NOTE | 2018-07-16 13:45 | ED ---
General Adult HPI - General Chief complaint: Nausea/Vomiting/Diarrhea Stated complaint: dehyrdated Time Seen by Provider: 07/16/18 11:53 Source: patient, RN notes reviewed, old records reviewed Mode of arrival: ambulatory Limitations: no limitations - History of Present Illness Initial comments: 23-year-old female present the emergency Department chief complaint of nausea vomiting early . Seen 2 days ago for similar complaints. N no vaginal bleeding or discharge Patient denies any significant abdominal pain. Patient states she feels very dehydrated and nauseated. She's been trying Zofran at home with little relief. Patient states that she has had upper respiratory congestion. She denies any recent fevers or chills. She says that she's optimal take medications to that she's been .Patient denies any recent fever, chills, shortness of breath, chest pain, back pain, abdominal pain , nausea vomiting, numbness or tingling, dysuria or hematuria, constipation or diarrhea, headaches or visual changes, or any other current symptoms - Related Data Home Medications Medication Instructions Recorded Confirmed Acetaminophen Tab [Tylenol Tab] 1,000 mg PO Q6H 07/16/18 07/16/18 Odg-[id number] Acid 1 cap PO DAILY 07/16/18 07/16/18 [-U Capsule (formulary)] Previous Rx's Medication Instructions Recorded Amoxicillin 500 mg PO Q8H #21 capsule 07/16/18 Metoclopramide [Reglan] 10 mg PO ACHS #12 tab 07/16/18 Allergies Allergy/AdvReac Type Severity Reaction Status Date / Time lamotrigine [From Lamictal] Allergy Rash/Hives Verified 07/16/18 11:57 DUST Allergy Unknown SNEEZING, Uncoded 07/16/18 11:47 RUNNY NOSE. Review of Systems ROS Statement: Those systems with pertinent positive or pertinent negative responses have been documented in the HPI. ROS Other: All systems not noted in ROS Statement are negative. Past Medical History Past Medical History: No Reported History Additional Past Medical History / Comment(s): ovarian cyst History of Any Multi-Drug Resistant Organisms: None Reported Past Surgical History: No Surgical Hx Reported Past Anesthesia/Blood Transfusion Reactions: No Reported Reaction Past Psychological History: Anxiety, Bipolar, Depression Smoking Status: Never smoker Past Alcohol Use History: Occasional Past Drug Use History: None Reported - Past Family History Mother Family Medical History: No Reported History General Exam - General Exam Comments Initial Comments: Patient is a 23-year-old female. Alert and oriented. No acute distress. Limitations: no limitations General appearance: alert, in no apparent distress Head exam: Present: atraumatic, normocephalic, normal inspection Eye exam: Present: normal appearance, PERRL, EOMI. Absent: scleral icterus, conjunctival injection, periorbital swelling ENT exam: Present: mucous membranes moist. Absent: normal exam (Erythematous oropharynx. Nasal congestion and purulent rhinorrhea.), normal oropharynx Neck exam: Present: normal inspection. Absent: tenderness, meningismus, lymphadenopathy Respiratory exam: Present: normal lung sounds bilaterally. Absent: respiratory distress, wheezes, rales, rhonchi, stridor Cardiovascular Exam: Present: regular rate, normal rhythm, normal heart sounds. Absent: systolic murmur, diastolic murmur, rubs, gallop, clicks GI/Abdominal exam: Present: soft, normal bowel sounds. Absent: distended, tenderness, guarding, rebound, rigid Extremities exam: Present: normal inspection, full ROM, normal capillary refill. Absent: tenderness, pedal edema, joint swelling, calf tenderness Back exam: Present: normal inspection Neurological exam: Present: alert, oriented X3, CN II-XII intact Psychiatric exam: Present: normal affect, normal mood Course Vital Signs 07/16/18 07/16/18 11:44 15:00 Temperature 98.2 F 98.9 F Pulse Rate 98 86 Respiratory 18 18 Rate Blood Pressure 104/67 136/72 O2 Sat by Pulse 98 99 Oximetry Medical Decision Making - Medical Decision Making This patient's a 23-year-old female presents emergency room today with nausea and vomiting. Her . She was seen earlier this week and a normal ultrasound showing acute . Patient and she will edema levels have increased at this time. Discussed thoroughly abdominal pain or vaginal bleeding or discomfort do not need to do any further evaluation for repeat ultrasounds. Patient's lab work today was reviewed and unremarkable. Patient will be discharged with Reglan Benadryl Patient does feel less nauseated and has had no vomiting emergency department. Tolerated by mouth challenge.. Discussed that she also take amoxicillin for upper respiratory infection. Discussed return parameters. Patient agrees treatment plan will comply. - Lab Data Result diagrams: 07/16/18 12:23 07/16/18 12:23 Lab Results 07/16/18 07/16/18 07/16/18 Range/Units 12:23 12:23 12:23 WBC 6.0 (3.8-10.6) k/uL RBC 4.67 (3.80-5.40) m/uL Hgb 14.2 (11.4-16.0) gm/dL Hct 42.9 (34.0-46.0) % MCV 92.0 (80.0-100.0) fL MCH 30.5 (25.0-35.0) pg MCHC 33.2 (31.0-37.0) g/dL RDW 12.3 (11.5-15.5) % Plt Count 195 (150-450) k/uL Neutrophils % 67 % Lymphocytes % 25 % Monocytes % 5 % Eosinophils % 0 % Basophils % 0 % Neutrophils # 4.0 (1.3-7.7) k/uL Lymphocytes # 1.5 (1.0-4.8) k/uL Monocytes # 0.3 (0-1.0) k/uL Eosinophils # 0.0 (0-0.7) k/uL Basophils # 0.0 (0-0.2) k/uL Sodium 141 (137-145) mmol/L Potassium 4.1 (3.5-5.1) mmol/L Chloride 106 (98-107) mmol/L Carbon Dioxide 23 (22-30) mmol/L Anion Gap 12 mmol/L BUN 6 L (7-17) mg/dL Creatinine 0.52 (0.52-1.04) mg/dL Est GFR (CKD-EPI)AfAm >90 (>60 ml/min/1.73 sqM) Est GFR (CKD-EPI)NonAf >90 (>60 ml/min/1.73 sqM) Glucose 79 (74-99) mg/dL Calcium 9.3 (8.4-10.2) mg/dL Total Bilirubin 0.3 (0.2-1.3) mg/dL AST 24 (14-36) U/L ALT 25 (9-52) U/L Alkaline Phosphatase 76 (38-126) U/L Total Protein 7.2 (6.3-8.2) g/dL Albumin 4.0 (3.5-5.0) g/dL Amylase 45 (30-110) U/L Lipase 57 (23-300) U/L HCG, Qual Detected HCG, Quant mIU/mL Urine Color Urine Appearance (Clear) Urine pH (5.0-8.0) Ur Specific [place] (1.001-1.035) Urine Protein (Negative) Urine Glucose (UA) (Negative) Urine Ketones (Negative) Urine Blood (Negative) Urine Nitrite (Negative) Urine Bilirubin (Negative) Urine Urobilinogen (<2.0) mg/dL Ur Leukocyte Esterase (Negative) Group A Strep Rapid Negative (Negative) 07/16/18 07/16/18 Range/Units 12:23 14:21 WBC (3.8-10.6) k/uL RBC (3.80-5.40) m/uL Hgb (11.4-16.0) gm/dL Hct (34.0-46.0) % MCV (80.0-100.0) fL MCH (25.0-35.0) pg MCHC (31.0-37.0) g/dL RDW (11.5-15.5) % Plt Count (150-450) k/uL Neutrophils % % Lymphocytes % % Monocytes % % Eosinophils % % Basophils % % Neutrophils # (1.3-7.7) k/uL Lymphocytes # (1.0-4.8) k/uL Monocytes # (0-1.0) k/uL Eosinophils # (0-0.7) k/uL Basophils # (0-0.2) k/uL Sodium (137-145) mmol/L Potassium (3.5-5.1) mmol/L Chloride (98-107) mmol/L Carbon Dioxide (22-30) mmol/L Anion Gap mmol/L BUN (7-17) mg/dL Creatinine (0.52-1.04) mg/dL Est GFR (CKD-EPI)AfAm (>60 ml/min/1.73 sqM) Est GFR (CKD-EPI)NonAf (>60 ml/min/1.73 sqM) Glucose (74-99) mg/dL Calcium (8.4-10.2) mg/dL Total Bilirubin (0.2-1.3) mg/dL AST (14-36) U/L ALT (9-52) U/L Alkaline Phosphatase (38-126) U/L Total Protein (6.3-8.2) g/dL Albumin (3.5-5.0) g/dL Amylase (30-110) U/L Lipase (23-300) U/L HCG, Qual HCG, Quant 9751.6 mIU/mL Urine Color Light Yellow Urine Appearance Clear (Clear) Urine pH 5.5 (5.0-8.0) Ur Specific [place] 1.008 (1.001-1.035) Urine Protein Negative (Negative) Urine Glucose (UA) Negative (Negative) Urine Ketones 1+ H (Negative) Urine Blood Negative (Negative) Urine Nitrite Negative (Negative) Urine Bilirubin Negative (Negative) Urine Urobilinogen <2.0 (<2.0) mg/dL Ur Leukocyte Esterase Negative (Negative) Group A Strep Rapid (Negative) Disposition Clinical Impression: Dehydration, Early stage of , Upper respiratory infection Disposition: HOME SELF-CARE Condition: Good Instructions: Acute Nausea and Vomiting (ED) Additional Instructions: Patient has follow-up with primary care provider. Return to emergency department if any alarming signs or symptoms occur. Prescriptions: Amoxicillin 500 mg PO Q8H #21 capsule Metoclopramide [Reglan] 10 mg PO ACHS #12 tab Is patient prescribed a controlled substance at d/c from ED?: No Referrals: Maru Gan MD [Primary Care Provider] - 1-2 days Time of Disposition: 14:40
[2018-07-16 14:33] LABS: Appearance,Urine Clear (Clear); Bilirubin,Urine Negative (Negative); Blood,Urine Negative (Negative); Color,Urine Light Yellow; Glucose,Urine (UA) Negative (Negative); Ketones,Urine 1+ (Negative); Leukocyte Esterase,Urine Negative (Negative); Nitrite,Urine Negative (Negative); PH, Urine 5.5 (5.0-8.0); Protein,Urine Negative (Negative); Specific Gravity,Urine 1.008 (1.001-1.035); Urobilinogen,Urine <2.0 mg/dL (<2.0)
[2018-07-16 15:01] VITALS: BP 136/72; PULSE 86; TEMP 98.9
== END 2018-07-16 15:01 | disposition home or self-care (01) ==
LOC: EC 11:38
DX: O99.281 Endocrine, nutritional and metabolic diseases complicating pregnancy, first trimester (principal); E86.0 Dehydration; O99.511 Diseases of the respiratory system complicating pregnancy, first trimester; J06.9 Acute upper respiratory infection, unspecified; Z3A.00 Weeks of gestation of pregnancy not specified; Z88.8 Allergy status to other drugs, medicaments and biological substances; Z91.09 Other allergy status, other than to drugs and biological substances
CPT/HCPCS: 36415; 80053; 82150; 83690; 85025; 81003; 84703; 84702; 87081; 87430; 99284; 96374; 96375; 96361 ×3; J1200; J2765

== ENCOUNTER 2019-01-15 10:38 | Outpatient (CLI) | payer OTHER ==
[2019-01-15 12:15] VITALS: BP 117/64; PULSE 96; RESP 16; TEMP 98.9
--- NOTE | 2019-01-26 09:25 | P.MSEPDOC ---
Presenting Problems - Arrival Data Date of Arrival on Unit: 01/15/19 Time of Arrival on Unit: 10:38 Mode of Transport: Ambulatory - Complaint OB-Reason for Admission/Chief Complaint: Observation/Evaluation Comment: back pain and cramping Medical History - Information : 2 Para: 1 Term: 1 : 0 Abortions: Spontaneous or Elective: 0 Number of Living Children: 1 - Gestational Age Gestational Age by AUNG (wks/days): 32 Weeks and 1 Days Review of Systems - Review of Systems Constitutional: No problems Breast: No problems ENT: No problems Cardiovascular: No problems Respiratory: No problems Gastrointestinal: No problems Genitourinary: No problems Musculoskeletal: No problems Neurological: No problems Skin: No problems Vital Signs - Temperature Temperature: 98.9 F Temperature Source: Temporal Artery Scan - Pulse Right Sitting Pulse Rate: 96 Pulse Assessment Method: Automatic Cuff - Respirations Respiratory Rate: 16 Oxygen Delivery Method: Room Air - Blood Pressure Right Arm Blood Pressure: 117/64 Blood Pressure Mean: 81 Blood Pressure Source: Automatic Cuff Medical Screen Scoring (Pre) - Cervical Exam Dilation: 0 cm = 0 Membranes: Intact - Uterine Contractions Frequency: N/A Duration: > 40 seconds = 2 - Maternal Vital Signs Maternal Temperature: N/A Maternal Blood Pressure: N/A Signs of Preeclampsia: N/A Maternal Respirations: N/A - Pain Assessment Pain Location and Character: Back, Abdomen Pain Scale Used: Numeric (1 - 10) Pain Intensity: 6 Pain Management Goal: 8 Pain Description: *Acute, Cramping Pain Frequency: Intermittent Pain Duration Units: Hours Pain Behavior: Vocalization - Maternal Trauma Maternal Trauma: N/A - Assessment Baseline FHR: 135 Heart Rate - NICHD Category: Category I (Normal) = 0 NST: Reactive Position: N/A Station: N/A - Total Score Total Score (Pre): 2 - Level of Risk Level of Risk: Low (0-5) Physician Notification (Pre) - Physician Notified Physician Notified Date: 01/15/19 Physician Notified Time: 11:59 Physician/Practitioner Notifed:: Uma New Order Received: Yes (D/C home) Disposition - Disposition OB Disposition: Physician follow up in office, Discharge to home Discharge Date: 01/15/19 Discharge Time: 12:05 I agree with the RN Medical Screening Exam: Yes Risk & Benefit of care provided described in d/c instruction: Yes Diagnosis: FALSE LABOR BEFORE 37 COMPLETED WEEKS OF GEST, THIRD TRI
== END 2019-01-15 12:05 | disposition home or self-care (01) ==
LOC: FBPOP 10:38
PROVIDERS: ATTEND Obstetrics & Gynecology
DX: O47.03 False labor before 37 completed weeks of gestation, third trimester (principal); Z3A.32 32 weeks gestation of pregnancy
CPT/HCPCS: 59025; G0463; 99213

== ENCOUNTER 2019-01-24 19:50 | Outpatient (CLI) | payer OTHER ==
[2019-01-24 20:20] VITALS: BP 117/69; PULSE 121; RESP 16; TEMP 98.1
[2019-01-24 20:40] LABS: Appearance,Urine Clear (Clear); Bacteria,Urine Rare /hpf; Bilirubin,Urine Negative (Negative); Blood,Urine Negative (Negative); Color,Urine Yellow; Glucose,Urine (UA) Negative (Negative); Ketones,Urine 4+ (Negative); Leukocyte Esterase,Urine Trace (Negative); Mucus,Urine Occasional /hpf; Nitrite,Urine Negative (Negative); PH, Urine 6.5 (5.0-8.0); Protein,Urine Trace (Negative); RBC,Urine 1 /hpf (0-5); Specific Gravity,Urine 1.027 (1.001-1.035); Squamous Epithelial Cell,Urine <1 /hpf (0-4); WBC,Urine 1 /hpf (0-5)
--- NOTE | 2019-02-27 10:09 | P.MSEPDOC ---
Presenting Problems - Arrival Data Date of Arrival on Unit: 01/24/19 Time of Arrival on Unit: 19:55 Mode of Transport: Ambulatory - Complaint OB-Reason for Admission/Chief Complaint: Rule Out SROM Comment: Patient states she lost her mucus plug earlier today and has been "leaking" small amounts today and is unsure if it is amniotic fluid. Medical History - Information : 2 Para: 1 Term: 1 : 0 Abortions: Spontaneous or Elective: 0 Number of Living Children: 1 - Gestational Age Gestational Age by AUNG (wks/days): 33 Weeks and 3 Days Review of Systems - Review of Systems Constitutional: No problems Breast: No problems ENT: No problems Cardiovascular: No problems Respiratory: No problems Gastrointestinal: No problems Genitourinary: No problems Musculoskeletal: No problems Neurological: No problems Skin: No problems Vital Signs - Temperature Temperature: 98.1 F Temperature Source: Temporal Artery Scan - Pulse Pulse Oximetery Pulse Rate: 121 Pulse Assessment Method: Automatic Cuff - Respirations Respiratory Rate: 16 Oxygen Delivery Method: Room Air - Blood Pressure Sitting Blood Pressure: 117/69 Blood Pressure Mean: 85 Blood Pressure Source: Automatic Cuff Medical Screen Scoring (Pre) - Cervical Exam Dilation: Exam Deferred Effacement: Exam Deferred Membranes: Intact - Uterine Contractions Frequency: > 5 minutes apart = 1 Duration: N/A Intensity: N/A - Maternal Vital Signs Maternal Temperature: N/A Maternal Blood Pressure: N/A Signs of Preeclampsia: N/A Maternal Respirations: N/A - Pain Assessment Pain Scale Used: Numeric (1 - 10) Pain Intensity: 0 - Maternal Trauma Maternal Trauma: N/A - Assessment Baseline FHR: 150 Heart Rate - NICHD Category: Category I (Normal) = 0 NST: Reactive Position: N/A Station: N/A - Total Score Total Score (Pre): 1 - Level of Risk Level of Risk: Low (0-5) Physician Notification (Pre) - Physician Notified Physician Notified Date: 01/24/19 Physician Notified Time: 20:15 Physician/Practitioner Notifed:: Dr. Stover New Order Received: Yes - Notification Comment Comment: Collect and send UA and check patient's cervix, call physician with report. Physician called at 2042 orders given to disharge patient home with instructions Disposition - Disposition OB Disposition: Discharge to home, Written follow up instructions reviewed Discharge Date: 01/24/19 Discharge Time: 20:46 I agree with the RN Medical Screening Exam: Yes Risk & Benefit of care provided described in d/c instruction: Yes Diagnosis: RELATED CONDITIONS, UNSPECIFIED, THIRD TRIMESTER
== END 2019-01-24 20:47 | disposition home or self-care (01) ==
LOC: FBPOP 19:50
PROVIDERS: ATTEND Obstetrics & Gynecology
DX: O26.93 Pregnancy related conditions, unspecified, third trimester (principal); Z3A.33 33 weeks gestation of pregnancy
CPT/HCPCS: 59025; 84112; 81001; G0463; 99213

== ENCOUNTER 2019-02-03 17:44 | Outpatient (CLI) | payer OTHER ==
[2019-02-03 18:54] VITALS: BP 115/71; RESP 16; TEMP 98.4
[2019-02-03 18:55] VITALS: PULSE 104
--- NOTE | 2019-03-11 07:36 | P.MSEPDOC ---
Presenting Problems - Arrival Data Date of Arrival on Unit: 02/03/19 Time of Arrival on Unit: 17:50 Mode of Transport: Ambulatory - Complaint OB-Reason for Admission/Chief Complaint: Possible Onset of Labor, Rule Out PROM Comment: ctx 15 min apart since 1529, leaking fluid Medical History - Information : 2 Para: 1 Term: 1 : 0 Abortions: Spontaneous or Elective: 0 Number of Living Children: 1 - Gestational Age Gestational Age by AUNG (wks/days): 34 Weeks and 6 Days Review of Systems - Review of Systems Constitutional: No problems Breast: No problems ENT: No problems Cardiovascular: No problems Respiratory: No problems Gastrointestinal: No problems Genitourinary: No problems Musculoskeletal: No problems Neurological: No problems Skin: No problems Vital Signs - Temperature Temperature: 98.4 F Temperature Source: Temporal Artery Scan - Pulse Right Brachial Pulse Rate: 104 Pulse Assessment Method: Pulse Oximetry - Respirations Respiratory Rate: 16 Oxygen Delivery Method: Room Air O2 Sat by Pulse Oximetry: 99 - Blood Pressure Right Arm Blood Pressure: 115/71 Blood Pressure Mean: 85 Blood Pressure Source: Automatic Cuff Medical Screen Scoring (Pre) - Cervical Exam Dilation: 1-3 cm = 1 Membranes: Intact - Uterine Contractions Frequency: > 5 minutes apart = 1 Duration: > 40 seconds = 2 Intensity: N/A - Maternal Vital Signs Maternal Temperature: N/A Maternal Blood Pressure: N/A Signs of Preeclampsia: N/A Maternal Respirations: N/A - Assessment - Baby A Baseline FHR: 140 Heart Rate - NICHD Category: Category I (Normal) = 0 NST: Reactive Position: N/A Station: N/A - Total Score - Baby A Total Score - Baby A: 4 - Level of Risk - Baby A Level of Risk - Baby A: Low (0-5) Physician Notification (Pre) - Physician Notified Physician Notified Date: 02/03/19 Physician Notified Time: 18:38 Spoke With: Uma Greenfield Order Received: Yes - Notification Comment Comment: May discharge when pulse closer to 100 Medical Screen Scoring (Post) - Uterine Contractions Frequency: > 5 minutes apart = 1 - Assessment - Baby A Heart Rate - NICHD Category: Category I (Normal) = 0 - Total Score Total Score - Baby A: 1 - Post Treatment Level of Risk Post Treatment Level of Risk - Baby A: Low (0-5) Physician Notification (Post) - Notification Comment Comment: pulse came down, no further contractions, follow up on 02/05 Disposition - Disposition OB Disposition: Discharge to home, Written follow up instructions reviewed Discharge Date: 02/03/19 Discharge Time: 18:45 I agree with the RN Medical Screening Exam: Yes Risk & Benefit of care provided described in d/c instruction: Yes Diagnosis: FALSE LABOR BEFORE 37 COMPLETED WEEKS OF GEST, THIRD TRI
== END 2019-02-03 18:45 | disposition home or self-care (01) ==
LOC: FBPOP 17:44
PROVIDERS: ATTEND Obstetrics & Gynecology
DX: O47.03 False labor before 37 completed weeks of gestation, third trimester (principal); Z3A.34 34 weeks gestation of pregnancy
CPT/HCPCS: 59025; 84112; G0463; 99213

== ENCOUNTER 2019-02-12 11:48 | Outpatient (CLI) | payer OTHER ==
[2019-02-12 12:11] VITALS: BP 124/66; PULSE 112; RESP 16; TEMP 97.9
--- NOTE | 2019-03-11 07:38 | P.MSEPDOC ---
Presenting Problems - Arrival Data Date of Arrival on Unit: 02/12/19 Time of Arrival on Unit: 11:45 Mode of Transport: Ambulatory - Complaint OB-Reason for Admission/Chief Complaint: Rule Out PROM Medical History - Information : 2 Para: 1 Number of Living Children: 1 - Gestational Age Gestational Age by AUNG (wks/days): 36 Weeks and 1 Days Review of Systems - Review of Systems Constitutional: No problems Breast: No problems ENT: No problems Cardiovascular: No problems Respiratory: No problems Gastrointestinal: No problems Genitourinary: No problems Musculoskeletal: No problems Neurological: No problems Skin: No problems Vital Signs - Temperature Temperature: 97.9 F Temperature Source: Temporal Artery Scan - Pulse Right Sitting Brachial Pulse Rate: 112 Pulse Assessment Method: Auscultation - Respirations Respiratory Rate: 16 Oxygen Delivery Method: Room Air O2 Sat by Pulse Oximetry: 100 - Blood Pressure Right Arm Sitting Blood Pressure: 124/66 Blood Pressure Mean: 85 Blood Pressure Source: Automatic Cuff Medical Screen Scoring (Pre) - Cervical Exam Dilation: 1-3 cm = 1 Effacement: More than 50% = 2 Membranes: Intact - Uterine Contractions Frequency: N/A Duration: N/A Intensity: N/A - Maternal Vital Signs Maternal Temperature: N/A Maternal Blood Pressure: N/A Signs of Preeclampsia: N/A Maternal Respirations: N/A - Maternal Trauma Maternal Trauma: N/A - Assessment - Baby A Baseline FHR: 150 Heart Rate - NICHD Category: Category I (Normal) = 0 NST: Reactive Position: N/A Station: N/A - Total Score - Baby A Total Score - Baby A: 3 - Pain Assessment Pain Scale Used: Numeric (1 - 10) Pain Intensity: 0 Physician Notification (Pre) - Physician Notified Physician Notified Date: 02/12/19 Physician Notified Time: 12:18 Spoke With: Dr Eaton New Order Received: Yes - Notification Comment Comment: discharge pt after obtaining reactive nst Disposition - Disposition OB Disposition: Discharge to home Discharge Date: 02/12/19 Discharge Time: 12:40 I agree with the RN Medical Screening Exam: Yes Risk & Benefit of care provided described in d/c instruction: Yes Diagnosis: FALSE LABOR BEFORE 37 COMPLETED WEEKS OF GEST, THIRD TRI
== END 2019-02-12 12:40 | disposition home or self-care (01) ==
LOC: FBPOP 11:48
PROVIDERS: ATTEND Obstetrics & Gynecology
DX: O47.03 False labor before 37 completed weeks of gestation, third trimester (principal); Z3A.36 36 weeks gestation of pregnancy
CPT/HCPCS: 59025; 84112; G0463; 99213

== ENCOUNTER 2019-02-24 19:51 | Outpatient (CLI) | payer OTHER ==
[2019-02-24 21:14] VITALS: BP 118/71; PULSE 124; RESP 16; TEMP 99.4
--- NOTE | 2019-03-26 08:08 | P.MSEPDOC ---
Presenting Problems - Arrival Data Date of Arrival on Unit: 02/24/19 Time of Arrival on Unit: 19:51 Mode of Transport: Ambulatory - Complaint OB-Reason for Admission/Chief Complaint: Possible Onset of Labor, Rule Out SROM Comment: painful contx since 1700, leaking of clear fluid throughout day. Medical History - Information : 2 Para: 1 Term: 1 : 0 Abortions: Spontaneous or Elective: 0 Number of Living Children: 1 - Gestational Age Gestational Age by AUNG (wks/days): 37 Weeks and 6 Days Review of Systems - Review of Systems Constitutional: No problems Breast: No problems ENT: No problems Cardiovascular: No problems Respiratory: No problems Gastrointestinal: No problems Genitourinary: No problems Musculoskeletal: No problems Neurological: No problems Skin: No problems Vital Signs - Temperature Temperature: 99.4 F Temperature Source: Oral - Pulse Right Sitting Brachial Pulse Rate: 124 Pulse Assessment Method: Automatic Cuff - Respirations Respiratory Rate: 16 Oxygen Delivery Method: Room Air O2 Sat by Pulse Oximetry: 100 - Blood Pressure Right Arm Sitting Blood Pressure: 118/71 Blood Pressure Mean: 86 Blood Pressure Source: Automatic Cuff Medical Screen Scoring (Pre) - Cervical Exam Dilation: 1-3 cm = 1 Effacement: More than 50% = 2 Membranes: Intact - Uterine Contractions Frequency: > or = 36 weeks =2 Duration: > 40 seconds = 2 - Maternal Trauma Maternal Trauma: N/A - Assessment - Baby A Baseline FHR: 150 Heart Rate - NICHD Category: Category I (Normal) = 0 NST: Reactive - Total Score - Baby A Total Score - Baby A: 7 - Level of Risk - Baby A Level of Risk - Baby A: Medium (6-9) - Pain Assessment Pain Location and Character: Lower, Abdomen Pain Scale Used: Numeric (1 - 10) Pain Intensity: 5 Pain Frequency: Intermittent Pain Duration: 3 Pain Duration Units: Hours Pain Behavior: Facial Grimacing, Vocalization Pain Aggravating Factors: Contractions Physician Notification (Pre) - Physician Notified Physician Notified Date: 02/24/19 Physician Notified Time: 21:39 Physician/Practitioner Notifed:: nathaniel Spoke With: nathaniel New Order Received: Yes - Notification Comment Comment: d/c pt home, oral hydrate at home, f/u at appt on . Disposition - Disposition OB Disposition: Discharge to home Discharge Date: 02/24/19 Discharge Time: 21:47 I agree with the RN Medical Screening Exam: Yes Risk & Benefit of care provided described in d/c instruction: No Risk & Benefit of Care Comment: Inadequate documentation Diagnosis: FALSE LABOR AT OR AFTER 37 COMPLETED WEEKS OF GESTATION
== END 2019-02-24 21:47 | disposition home or self-care (01) ==
LOC: FBPOP 19:51
PROVIDERS: ATTEND Obstetrics & Gynecology
DX: O47.1 False labor at or after 37 completed weeks of gestation (principal); Z3A.37 37 weeks gestation of pregnancy
CPT/HCPCS: 59025; 84112; G0463; 99213

== ENCOUNTER 2019-03-04 05:45 | Inpatient (IN) | payer OTHER ==
[2019-03-04] MEDS ORDERED: TERBUTALINE 1 MG/ML VIAL SQ PRN (05:58)
[2019-03-04] MEDS ORDERED: OXYTOCIN 10 UNIT/ML 1 ML VIAL IM PRN (05:58)
[2019-03-04] MEDS ORDERED: CARBOPROST TROMETHAMINE 250 MCG/ML 1 ML AMP IM PRN (05:58)
[2019-03-04] MEDS ORDERED: METHYLERGONOVINE 0.2 MG/ML 1 ML AMP IM PRN (05:58)
[2019-03-04] MEDS ORDERED: LIDOCAINE 0.5% (PF) 5 MG/ML (50 ML SDV) SQ PRN (05:58)
[2019-03-04] MEDS ORDERED: OXYTOCIN 30 UNITS/500 ML NS 30 UNIT in SALINE 1 500ML.BAG IV SCH (06:00)
[2019-03-04 06:08] VITALS: BMI 24.3
[2019-03-04] MEDS: LACTATED RINGERS 1,000 ML IV SCH ×2 (06:09→09:37)
[2019-03-04 06:41] LABS: Basophils % (A) 0 %; Eosinophils # (A) 0.1 k/uL (0-0.7); Eosinophils % (A) 1 %; HCT 33.3 % (34.0-46.0); Lymphocytes # (A) 1.6 k/uL (1.0-4.8); Lymphocytes % (A) 21 %; MCH 30.4 pg (25.0-35.0); MCHC 33.1 g/dL (31.0-37.0); MCV 91.9 fL (80.0-100.0); Mean Platelet Volume 8.3; Monocytes # (A) 0.4 k/uL (0-1.0); Monocytes % (A) 5 %; Neutrophils # (A) 5.2 k/uL (1.3-7.7); Neutrophils % (A) 69 %; Platelet Count 203 k/uL (150-450); RBC 3.62 m/uL (3.80-5.40); RDW 14.2 % (11.5-15.5); WBC 7.5 k/uL (3.8-10.6)
--- NOTE | 2019-03-04 07:26 | P.HPOB ---
History of Present Illness H&P Date: 03/04/19 This is a 24-year-old white female 2 para 1001 EDC 03/11/2019 at 39 weeks gestation. Patient presents today for induction of labor with favorable multiparous cervix. She denies vaginal bleeding or fluid leakage. She is found to be having mild uterine contractions spontaneously. Obstetric history significant for blood type A-, RhoGAM received. Rubella status immune. VDRL testing, urine culture, hepatitis B surface antigen, HIV testing, gonorrhea and chlamydia cultures, Pap smear, group B strep cultures all negative. One-hour Glucola 139. Social history patient has never been a smoker, she denies alcohol or drug use. 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 Past medical history is significant for anxiety and depression. Past surgical history is negative. Current medications vitamins daily. ALLERGIES include azithromycin, Lamictal, and seasonal ALLERGIES. Family history significant for Godoy Parkinson White syndrome, diabetes and hypertension. On exam this is a pleasant white female, 5 foot 3 inches, 137 pounds, blood pressure 123/71 on admission. General physical exam is within normal limits. Chest is clear in all bravo. Extremities reveal no edema. Cervix is 4 cm dilated, 70% effaced, -1 station, vertex presentation, soft, mid position. Artificial amniorrhexis reveals light meconium-stained fluid. heart rate is consistent with reactive NST. Impression: 39 week intrauterine , here for elective induction of labor, mild spontaneous uterine contractions every 4-5 minutes apart. Meconium- stained fluid. Negative group B strep cultures. Plan: Continue close maternal and surveillance. Oxytocin per hospital pro tocol. Analgesic options reviewed with the patient. Anticipate normal spontaneous vaginal delivery. Review of Systems Constitutional: Reports as per HPI Past Medical History Past Medical History: No Reported History Additional Past Medical History / Comment(s): ovarian cyst History of Any Multi-Drug Resistant Organisms: None Reported Past Surgical History: No Surgical Hx Reported Past Anesthesia/Blood Transfusion Reactions: No Reported Reaction Past Psychological History: Anxiety, Bipolar, Depression Smoking Status: Never smoker Past Alcohol Use History: None Reported, Occasional Past Drug Use History: None Reported - Past Family History Father Family Medical History: Diabetes Mellitus Mother Family Medical History: No Reported History Medications and Allergies Home Medications Medication Instructions Recorded Confirmed Type Emt-Hxil-Uarcy Acid 1 cap PO DAILY 07/16/18 03/04/19 History [-U Capsule (formulary)] FLUoxetine HCL [PROzac] 1 tab PO DAILY 01/15/19 03/04/19 History Allergies Allergy/AdvReac Type Severity Reaction Status Date / Time lamotrigine [From Lamictal] Allergy Rash/Hives Verified 03/04/19 05:57 DUST Allergy Unknown SNEEZING, Uncoded 03/04/19 05:57 RUNNY NOSE. Exam Vital Signs Temp Pulse Resp BP 03/04/19 06:03 97.5 F L 95 16 123/71 Intake and Output 03/03/19 03/04/19 03/04/19 22:59 06:59 14:59 Other: # Voids 1 Weight 62.142 kg See dictation under HPI please Results Result Diagrams: 03/04/19 06:20 Abnormal Lab Results - Last 24 Hours (Table) 03/04/19 Range/Units 06:20 RBC 3.62 L (3.80-5.40) m/uL Hgb 11.0 L (11.4-16.0) gm/dL Hct 33.3 L (34.0-46.0) % Assessment and Plan Assessment: 39 week intrauterine , here for elective induction of labor, light meconium-stained fluid. Reactive NST. Plan: Oxytocin per hospital protocol. Close maternal and surveillance. Anticipate normal spontaneous vaginal delivery. Time with Patient: Less than 30
[2019-03-04] MEDS ORDERED: fentaNYL (PF) 50 MCG/ML 5 ML AMP ONE (09:35)
[2019-03-04] MEDS ORDERED: ROPIVACAINE 5MG/ML 20ML VIAL ONE (09:35)
[2019-03-04] MEDS ORDERED: SODIUM CHLORIDE 0.9% 100 ML BAG ONE (09:35)
--- NOTE | 2019-03-04 13:16 | P.PROBDLV ---
Vaginal Delivery Note - . Vaginal Delivery Note: This is a 24-year-old white female 2 para 1001 EDC 03/11/2019 at 39 weeks gestation. Patient presented for induction with term multiparous cervix. Rubella status immune. But type A-. Group B strep cultures negative. Please see admitting H&P for details. Artificial amniorrhexis was performed for light meconium-stained fluid. Oxytocin was started and titrated per hospital protocol. Patient requested epidural and this was placed without difficulty. She went on to become completely dilated. Perineal body was prepped and draped in the usual sterile fashion. With excellent maternal expulsive efforts infant's head delivered occiput anterior and restituted accordingly. There was a nuchal cord 1 that was easily reduced. The left or anterior shoulder was gently delivered from underneath the pubic symphysis at which time the oropharynx, nasopharynx, and external nares were all bulb suctioned on the perineal body. Patient was officially delivered of a liveborn female at 1216 hours. Umbilical cord was doubly clamped and ligated, she was handed to waiting nurses for evaluation where scores of 9 and 9 at one and 5 minutes respectively were given. The placenta delivered spontaneously, it was inspected and noted to be intact with trivascular cord at 1222 hours. Inspection of the cervix, vagina, perineum, periurethral, and perirectal areas revealed no lacerations and no defects. No suturing was deemed necessary. Bleeding was somewhat brisk despite uterine massage and oxytocin. Therefore Methergine 1 was given with excellent results. Total estimated blood loss 400 mL's. All sponge needle and instrument counts are correct at the end of the procedure. Infant weighs 7 lbs. 5 oz. or 3315 g. Family is allowed to begin the bonding experience in the LDR.
[2019-03-04] MEDS ORDERED: ZOLPIDEM 5 MG TAB PO PRN (13:17)
[2019-03-04] MEDS ORDERED: BENZOCAINE/MENTHOL SPRAY 1 GM/SPRAY AEROSOL TOPICAL PRN (13:17)
[2019-03-04] MEDS ORDERED: diphenhydrAMINE 25 MG CAP PO PRN (13:17)
[2019-03-04] MEDS ORDERED: diphenhydrAMINE 50 MG CAP PO PRN (13:17)
[2019-03-04] MEDS ORDERED: WITCH HAZEL 1 EACH MED..PAD TOPICAL PRN (13:17)
[2019-03-04] MEDS ORDERED: diphenhydrAMINE 50 MG/ML 1 ML VIAL IVP PRN ×2 (13:17)
[2019-03-04] MEDS ORDERED: SIMETHICONE 80 MG CHEWABLE PO PRN (13:17)
[2019-03-04] MEDS ORDERED: HYDROCORTISONE 2.5% RECTAL CREAM 30 GM TUBE RECTAL PRN (13:17)
[2019-03-04] MEDS ORDERED: LANOLIN CREAM 5 GM TUBE TOPICAL PRN (13:17)
[2019-03-04] MEDS ORDERED: ACETAMINOPHEN TAB 325 MG TAB PO PRN (13:17)
[2019-03-04] MEDS ORDERED: diphenhydrAMINE ELIXIR 25 MG/10 ML CUP PO PRN (13:17)
[2019-03-04] MEDS ORDERED: OXYTOCIN 20 UNITS/1000 ML NS 1,000 ML IV SCH (13:30)
[2019-03-04 17:11] VITALS: RESP 16
[2019-03-04] MEDS: IBUPROFEN 600 MG TAB PO PRN (19:42)
[2019-03-04] MEDS: SENNOSIDES-DOCUSATE SODIUM 1 EACH TAB PO SCH (23:52)
[2019-03-05] MEDS: IBUPROFEN 600 MG TAB PO PRN (07:39)
--- NOTE | 2019-03-05 07:57 | P.DS ---
Providers Date of admission: 03/04/19 05:45 Expected date of discharge: 03/05/19 Attending physician: Kiera Eaton Primary care physician: Stated None Hospital Course: This is a 24-year-old white female 2 para 1001 EDC 03/11/2019 at 39 weeks gestation. Patient presented for induction with term favorable multiparous cervix. was unremarkable, rubella status immune, group B strep cultures negative, blood type A-. Please see my dictated history and physical for details. Artificial amniorrhexis revealed light meconium-stained fluid. Oxytocin was started and titrated per hospital protocol. Patient went on to swiftly deliver a liveborn female infant with scores of 9 and 9 at one and 5 minutes respectively. weighed 7 lbs. 5 oz. or 3315 g. There was an estimated blood loss of 400 mL, no suturing or lacerations were encountered. Please see dictated delivery note for details. This morning the patient is doing well. She is voiding, ambulating and passing flatus without difficulty. Vital signs are stable and she is afebrile. Fundus is firm and in the midline, symmetric and 18 week size. Extremities are negative for edema. [place] is doing well. Breast-feeding is going well. Patient has no problems or difficulties this morning. She is being discharged home in very good condition. She will follow-up with me in the office in 6 weeks. I have reminded her no intercourse, tampons or douching. She will use [id number]-[id number] Advil or Aleve as needed for pain, or Motrin, 600 mg every 6 hours. She will call with any fevers shakes or chills, foul smelling or copious lochia, with any pain not alleviated by [id number] products, or indeed with any concerns. She will continue taking her vitamin daily. We have briefly discussed options for contraception and we will discern this further in the office. Patient Condition at Discharge: Good Plan - Discharge Summary Discharge Rx Participant: No New Discharge Prescriptions: No Action Shu-Nggk-Axlzg Acid [-U Capsule (formulary)] 1 cap PO DAILY FLUoxetine HCL [PROzac] 1 tab PO DAILY Discharge Medication List Oqb-Vaai-Gmhsd Acid [-U Capsule (formulary)] 1 cap PO DAILY 07/16/18 [History] FLUoxetine HCL [PROzac] 1 tab PO DAILY 01/15/19 [History] Follow up Appointment(s)/Referral(s): Kiera Eaton MD [STAFF PHYSICIAN] - 6 Weeks
[2019-03-05 11:30] VITALS: BP 98/62; PULSE 95; TEMP 97.8
[2019-03-05] MEDS: SENNOSIDES-DOCUSATE SODIUM 1 EACH TAB PO SCH (11:33)
== END 2019-03-05 14:00 | disposition home or self-care (01) | DRG 807 ==
LOC: 4FBP 05:45
PROVIDERS: ADMIT Obstetrics & Gynecology; ATTEND Obstetrics & Gynecology
PROC: 10E0XZZ Delivery of Products of Conception, External Approach (ICD-10-PCS; principal; 2019-03-04)
PROC: 10907ZC Drainage of Amniotic Fluid, Therapeutic from Products of Conception, Via Natural or Artificial Opening (ICD-10-PCS; 2019-03-04)
PROC: 00HU33Z Insertion of Infusion Device into Spinal Canal, Percutaneous Approach (ICD-10-PCS; 2019-03-04)
PROC: 3E0R3BZ Introduction of Anesthetic Agent into Spinal Canal, Percutaneous Approach (ICD-10-PCS; 2019-03-04)
DX: O77.0 Labor and delivery complicated by meconium in amniotic fluid (principal); Z37.0 Single live birth; O99.52 Diseases of the respiratory system complicating childbirth; O99.344 Other mental disorders complicating childbirth; F31.9 Bipolar disorder, unspecified; F41.9 Anxiety disorder, unspecified; J30.2 Other seasonal allergic rhinitis; Z3A.39 39 weeks gestation of pregnancy; Z82.49 Family history of ischemic heart disease and other diseases of the circulatory system; Z83.3 Family history of diabetes mellitus; Z88.1 Allergy status to other antibiotic agents; Z88.8 Allergy status to other drugs, medicaments and biological substances
CPT/HCPCS: 85025; 86850; 86870; 86880; 86900; 86901

== ENCOUNTER 2019-08-12 07:50 | Emergency (ER) | payer OTHER ==
[2019-08-12] MEDS ORDERED: Rhogam IMMUNE GLOBULIN 1,500 UNIT/1 ML IM ONE (08:18)
--- NOTE | 2019-08-12 08:25 | ED ---
Female Urogenital HPI - General Chief complaint: OB/Uterine Contractions Stated complaint: POSS MISCARRAGE Time Seen by Provider: 08/12/19 08:01 Source: patient, RN notes reviewed, old records reviewed Mode of arrival: ambulatory Limitations: no limitations - History of Present Illness Initial comments: Patient is a 24-year-old female, who presents emergency department today with vaginal bleeding since 7 PM last night. She reports that she had a faint test at home. Patient reportedly has female. Patient's SOFT WORK CIGAR MACHINE OPERATOR is Dr. Vincent. Patient reports no pain or cramping. She reports she was concerned she's had increased bleeding and she notices bright red blood. Patient reports that she has no fevers or chills, dysuria. Patient states that she has called her SOFT WORK CIGAR MACHINE OPERATOR in order to come to the ER for evaluation and check hCG levels. - Related Data Home Medications Medication Instructions Recorded Confirmed Qwp-[id number]-Shojb Acid 1 cap PO DAILY 07/16/18 03/04/19 [-U Capsule (formulary)] FLUoxetine HCL [PROzac] 1 tab PO DAILY 01/15/19 03/04/19 Allergies Allergy/AdvReac Type Severity Reaction Status Date / Time lamotrigine [From Lamictal] Allergy Rash/Hives Verified 08/12/19 07:58 DUST Allergy Unknown SNEEZING, Uncoded 03/04/19 05:57 RUNNY NOSE. Review of Systems ROS Statement: Those systems with pertinent positive or pertinent negative responses have been documented in the HPI. ROS Other: All systems not noted in ROS Statement are negative. Past Medical History Past Medical History: No Reported History Additional Past Medical History / Comment(s): ovarian cyst History of Any Multi-Drug Resistant Organisms: None Reported Past Surgical History: No Surgical Hx Reported Past Anesthesia/Blood Transfusion Reactions: No Reported Reaction Past Psychological History: Anxiety, Bipolar, Depression Smoking Status: Never smoker Past Alcohol Use History: None Reported, Occasional Past Drug Use History: None Reported - Past Family History Father Family Medical History: Diabetes Mellitus Mother Family Medical History: No Reported History General Exam - General Exam Comments Initial Comments: 24 year old female. Alert and oriented. Patient appears in no distress. Limitations: no limitations General appearance: alert, in no apparent distress Head exam: Present: atraumatic, normocephalic, normal inspection Eye exam: Present: normal appearance, PERRL, EOMI. Absent: scleral icterus, conjunctival injection, periorbital swelling ENT exam: Present: normal exam, mucous membranes moist Neck exam: Present: normal inspection. Absent: tenderness, meningismus, lymphadenopathy Respiratory exam: Present: normal lung sounds bilaterally. Absent: respiratory distress, wheezes, rales, rhonchi, stridor Cardiovascular Exam: Present: regular rate, normal rhythm, normal heart sounds. Absent: systolic murmur, diastolic murmur, rubs, gallop, clicks GI/Abdominal exam: Present: soft, normal bowel sounds. Absent: distended, tenderness, guarding, rebound, rigid External exam: Present: normal external exam Speculum exam: Present: vaginal bleeding (Bright red vaginal bleeding noted in vaginal vault. No clotting. No adnexal tenderness.). Absent: normal speculum exam By manual exam: Present: normal by manual exam Extremities exam: Present: normal inspection, full ROM, normal capillary refill. Absent: tenderness, pedal edema, joint swelling, calf tenderness Back exam: Present: normal inspection Neurological exam: Present: alert, oriented X3, CN II-XII intact Psychiatric exam: Present: normal affect, normal mood Skin exam: Present: warm Course Vital Signs 08/12/19 08/12/19 08/12/19 07:55 08:44 08:52 Temperature 98.7 F 99.3 F Pulse Rate 102 H 92 Respiratory 16 20 Rate Blood Pressure 115/71 108/73 O2 Sat by Pulse 99 99 99 Oximetry 08/12/19 09:00 Temperature Pulse Rate 72 Respiratory 18 Rate Blood Pressure 108/73 O2 Sat by Pulse 99 Oximetry Medical Decision Making - Medical Decision Making 24-year-old female presents today for abnormal uterine bleeding in early . Patient on pelvic exam does have bright red blood noted in vaginal vault. Cervix shows no significant dilation or clot within the os. She has no tenderness or pain at this time. Patient had blood work obtained. Patient's hCG level .4. Rh-. She was given RhoGAM due to bleeding on exam. Discussed with low hCG level unlikely to visualize anything on ultrasound at this time. She has no pain. Discussed patient's likely complete miscarriage and Patient can follow-up with her SOFT WORK CIGAR MACHINE OPERATOR. - Lab Data Result diagrams: 08/12/19 08:45 08/12/19 08:45 Lab Results 08/12/19 08/12/19 08/12/19 Range/Units 08:45 08:45 08:45 WBC (3.8-10.6) k/uL RBC (3.80-5.40) m/uL Hgb (11.4-16.0) gm/dL Hct (34.0-46.0) % MCV (80.0-100.0) fL MCH (25.0-35.0) pg MCHC (31.0-37.0) g/dL RDW (11.5-15.5) % Plt Count (150-450) k/uL Neutrophils % % Lymphocytes % % Monocytes % % Eosinophils % % Basophils % % Neutrophils # (1.3-7.7) k/uL Lymphocytes # (1.0-4.8) k/uL Monocytes # (0-1.0) k/uL Eosinophils # (0-0.7) k/uL Basophils # (0-0.2) k/uL PT (9.0-12.0) sec INR (<1.2) APTT (22.0-30.0) sec Sodium 143 (137-145) mmol/L Potassium 3.8 (3.5-5.1) mmol/L Chloride 111 H (98-107) mmol/L Carbon Dioxide 23 (22-30) mmol/L Anion Gap 9 mmol/L BUN 9 (7-17) mg/dL Creatinine 0.68 (0.52-1.04) mg/dL Est GFR (CKD-EPI)AfAm >90 (>60 ml/min/1.73 sqM) Est GFR (CKD-EPI)NonAf >90 (>60 ml/min/1.73 sqM) Glucose 83 (74-99) mg/dL Calcium 9.4 (8.4-10.2) mg/dL HCG, Quant 6.4 mIU/mL Urine Color Yellow Urine Appearance Clear (Clear) Urine pH 7.0 (5.0-8.0) Ur Specific [place] 1.021 (1.001-1.035) Urine Protein Negative (Negative) Urine Glucose (UA) Negative (Negative) Urine Ketones Negative (Negative) Urine Blood Large H (Negative) Urine Nitrite Negative (Negative) Urine Bilirubin Negative (Negative) Urine Urobilinogen <2.0 (<2.0) mg/dL Ur Leukocyte Esterase Trace H (Negative) Urine RBC 73 H (0-5) /hpf Urine WBC 2 (0-5) /hpf Ur Squamous Epith Cells 1 (0-4) /hpf Urine Mucus Few H (None) /hpf Trichomonas Ag (Rapid) (Negative) Blood Type A Negative Blood Type Recheck A Neg Bld Type Recheck Status No Antibody Screen NEGATIVE 08/12/19 08/12/19 08/12/19 Range/Units 08:45 08:45 08:45 WBC 6.1 (3.8-10.6) k/uL RBC 4.54 (3.80-5.40) m/uL Hgb 13.7 (11.4-16.0) gm/dL Hct 40.5 (34.0-46.0) % MCV 89.3 (80.0-100.0) fL MCH 30.2 (25.0-35.0) pg MCHC 33.8 (31.0-37.0) g/dL RDW 13.2 (11.5-15.5) % Plt Count 226 (150-450) k/uL Neutrophils % 75 % Lymphocytes % 18 % Monocytes % 4 % Eosinophils % 0 % Basophils % 0 % Neutrophils # 4.6 (1.3-7.7) k/uL Lymphocytes # 1.1 (1.0-4.8) k/uL Monocytes # 0.2 (0-1.0) k/uL Eosinophils # 0.0 (0-0.7) k/uL Basophils # 0.0 (0-0.2) k/uL PT 10.8 (9.0-12.0) sec INR 1.0 (<1.2) APTT 23.3 (22.0-30.0) sec Sodium (137-145) mmol/L Potassium (3.5-5.1) mmol/L Chloride (98-107) mmol/L Carbon Dioxide (22-30) mmol/L Anion Gap mmol/L BUN (7-17) mg/dL Creatinine (0.52-1.04) mg/dL Est GFR (CKD-EPI)AfAm (>60 ml/min/1.73 sqM) Est GFR (CKD-EPI)NonAf (>60 ml/min/1.73 sqM) Glucose (74-99) mg/dL Calcium (8.4-10.2) mg/dL HCG, Quant mIU/mL Urine Color Urine Appearance (Clear) Urine pH (5.0-8.0) Ur Specific [place] (1.001-1.035) Urine Protein (Negative) Urine Glucose (UA) (Negative) Urine Ketones (Negative) Urine Blood (Negative) Urine Nitrite (Negative) Urine Bilirubin (Negative) Urine Urobilinogen (<2.0) mg/dL Ur Leukocyte Esterase (Negative) Urine RBC (0-5) /hpf Urine WBC (0-5) /hpf Ur Squamous Epith Cells (0-4) /hpf Urine Mucus (None) /hpf Trichomonas Ag (Rapid) Negative (Negative) Blood Type Blood Type Recheck Bld Type Recheck Status Antibody Screen Disposition Clinical Impression: Miscarriage Disposition: HOME SELF-CARE Condition: Good Instructions (If sedation given, give patient instructions): Miscarriage (ED) Additional Instructions: Repeat hCG in 2 days. Follow-up with SOFT WORK CIGAR MACHINE OPERATOR. Motrin Tylenol for pain and cramping. Please follow up with family doctor if symptoms have not improved over the next two days. Please return to the emergency room if your symptoms increase or worsen or for any other concerns. Is patient prescribed a controlled substance at d/c from ED?: No Referrals: Maru Gan MD [Primary Care Provider] - 1-2 days Time of Disposition: 10:08
[2019-08-12 08:55] VITALS: TEMP 99.3
[2019-08-12 09:08] LABS: Basophils % (A) 0 %; Eosinophils % (A) 0 %; HCT 40.5 % (34.0-46.0); HGB 13.7 gm/dL (11.4-16.0); Lymphocytes # (A) 1.1 k/uL (1.0-4.8); Lymphocytes % (A) 18 %; MCH 30.2 pg (25.0-35.0); MCHC 33.8 g/dL (31.0-37.0); MCV 89.3 fL (80.0-100.0); Mean Platelet Volume 6.6; Monocytes # (A) 0.2 k/uL (0-1.0); Monocytes % (A) 4 %; Neutrophils # (A) 4.6 k/uL (1.3-7.7); Neutrophils % (A) 75 %; Platelet Count 226 k/uL (150-450); RBC 4.54 m/uL (3.80-5.40); RDW 13.2 % (11.5-15.5); WBC 6.1 k/uL (3.8-10.6)
[2019-08-12 09:14] LABS: Appearance,Urine Clear (Clear); Bilirubin,Urine Negative (Negative); Blood,Urine Large (Negative); Color,Urine Yellow; Glucose,Urine (UA) Negative (Negative); Ketones,Urine Negative (Negative); Leukocyte Esterase,Urine Trace (Negative); Mucus,Urine Few /hpf; Nitrite,Urine Negative (Negative); Protein,Urine Negative (Negative); RBC,Urine 73 /hpf (0-5); Specific Gravity,Urine 1.021 (1.001-1.035); Squamous Epithelial Cell,Urine 1 /hpf (0-4); Urobilinogen,Urine <2.0 mg/dL (<2.0)
[2019-08-12 09:16] LABS: African American GFR (CKD) >90 (>60 ml/min/1.73 sqM); Anion Gap 9 mmol/L; Blood Urea Nitrogen 9 mg/dL (7-17); Calcium 9.4 mg/dL (8.4-10.2); Carbon Dioxide 23 mmol/L (22-30); Chloride 111 mmol/L (98-107); Glucose 83 mg/dL (74-99); Potassium 3.8 mmol/L (3.5-5.1); Sodium 143 mmol/L (137-145)
[2019-08-12 09:19] LABS: Partial Thromboplastin Time 23.3 sec (22.0-30.0); Prothrombin Time 10.8 sec (9.0-12.0)
[2019-08-12 09:33] LABS: HCG,Quantitative Serum 6.4 mIU/mL
[2019-08-12 10:15] VITALS: BP 109/77; PULSE 92; RESP 20
[2019-08-13 13:47] LABS: N. gonorrhoeae,PCR Negative (Neg,Equiv); Neisseria Source Vagina
[2019-08-13 13:50] LABS: C. trachomatis,PCR Negative (Neg,Equiv); Chlamydia trachomatis Source Vagina
== END 2019-08-12 10:28 | disposition home or self-care (01) ==
LOC: EC 07:50
DX: O03.9 Complete or unspecified spontaneous abortion without complication (principal); F41.9 Anxiety disorder, unspecified; F31.9 Bipolar disorder, unspecified; Z79.899 Other long term (current) drug therapy; Z88.8 Allergy status to other drugs, medicaments and biological substances; Z91.09 Other allergy status, other than to drugs and biological substances
CPT/HCPCS: 36415; 80048; 81001; 84702; 85025; 85610; 85730; 86850; 86900; 86901; 87070; 87491; 87591; 87808; 96372; 99284

== ENCOUNTER → 2019-08-14 | Outpatient (CLI) | payer OTHER | END | disposition home or self-care (01) | LOC: LABWHC1 10:41 | PROVIDERS: ATTEND Physician Assistant Medical | DX: O20.0 Threatened abortion (principal); Z3A.00 Weeks of gestation of pregnancy not specified | CPT/HCPCS: 36415; 84702 ==

== ENCOUNTER 2019-12-05 15:14 | Emergency (ER) | payer OTHER ==
[2019-12-05 15:34] VITALS: TEMP 98.2
[2019-12-05] MEDS ORDERED: SODIUM CHLORIDE 0.9% 1,000 ML IV STA (15:42)
[2019-12-05] MEDS ORDERED: SODIUM CHLORIDE 0.9% 500 ML 500 ML IV STA (15:42)
[2019-12-05 16:28] LABS: Appearance,Urine Clear (Clear); Bilirubin,Urine Negative (Negative); Blood,Urine Negative (Negative); Color,Urine Yellow; Glucose,Urine (UA) Negative (Negative); Ketones,Urine Negative (Negative); Leukocyte Esterase,Urine Small (Negative); Mucus,Urine Moderate /hpf; Nitrite,Urine Negative (Negative); PH, Urine 6.5 (5.0-8.0); Protein,Urine Negative (Negative); RBC,Urine 2 /hpf (0-5); Specific Gravity,Urine 1.029 (1.001-1.035); Squamous Epithelial Cell,Urine 4 /hpf (0-4); WBC,Urine 2 /hpf (0-5)
[2019-12-05 16:32] LABS: HCT 41.5 % (34.0-46.0); MCH 30.9 pg (25.0-35.0); MCHC 33.7 g/dL (31.0-37.0); MCV 91.5 fL (80.0-100.0); Mean Platelet Volume 7.8; RBC 4.53 m/uL (3.80-5.40); RDW 12.2 % (11.5-15.5); WBC 8.5 k/uL (3.8-10.6)
[2019-12-05 16:34] LABS: ALT 17 U/L (4-34); AST 31 U/L (14-36); African American GFR (CKD) >90 (>60 ml/min/1.73 sqM); Albumin 4.4 g/dL (3.5-5.0); Alkaline Phosphatase 86 U/L (38-126); Anion Gap 9 mmol/L; Blood Urea Nitrogen 12 mg/dL (7-17); Calcium 9.4 mg/dL (8.4-10.2); Carbon Dioxide 19 mmol/L (22-30); Chloride 107 mmol/L (98-107); Glucose 86 mg/dL (74-99); Non-African American GFR(CKD) >90 (>60 ml/min/1.73 sqM); Potassium 4.5 mmol/L (3.5-5.1); Sodium 135 mmol/L (137-145); Total Bilirubin 0.4 mg/dL (0.2-1.3); Total Protein 7.4 g/dL (6.3-8.2)
--- NOTE | 2019-12-05 16:37 | ED ---
Abdominal Pain HPI - General Chief Complaint: Abdominal Pain Stated Complaint: Abd pain Time Seen by Provider: 12/05/19 15:38 Source: patient, RN notes reviewed Mode of arrival: ambulatory Limitations: no limitations - History of Present Illness Initial Comments: This a 24 year old female presents emergency Department chief complaint lower abdominal pain. Patient states that she was involved she is . She did have an intake appointment but has not had any ultrasounds. Patient denies any vaginal bleeding or vaginal discharge. She states she has some lower abdominal pain. She's had some hot and cold flashes no known fever. Denies any dysuria, hematuria. Patient A1. Patient denies any flank pain, chest pain or shortness breath. Patient states she is scheduled see - Related Data Home Medications Medication Instructions Recorded Confirmed Wyw-Rymy-Vadoe Acid 1 cap PO DAILY 07/16/18 03/04/19 [-U Capsule (formulary)] FLUoxetine HCL [PROzac] 1 tab PO DAILY 01/15/19 03/04/19 Allergies Allergy/AdvReac Type Severity Reaction Status Date / Time lamotrigine [From Lamictal] Allergy Rash/Hives Verified 12/05/19 15:34 DUST Allergy Unknown SNEEZING, Uncoded 12/05/19 15:34 RUNNY NOSE. Review of Systems ROS Statement: Those systems with pertinent positive or pertinent negative responses have been documented in the HPI. ROS Other: All systems not noted in ROS Statement are negative. Past Medical History Past Medical History: No Reported History Additional Past Medical History / Comment(s): ovarian cyst History of Any Multi-Drug Resistant Organisms: None Reported Past Surgical History: No Surgical Hx Reported Past Anesthesia/Blood Transfusion Reactions: No Reported Reaction Past Psychological History: Anxiety, Bipolar, Depression Smoking Status: Never smoker Past Alcohol Use History: Occasional Past Drug Use History: None Reported - Past Family History Father Family Medical History: Diabetes Mellitus Mother Family Medical History: No Reported History General Exam Limitations: no limitations General appearance: alert, in no apparent distress Head exam: Present: atraumatic, normocephalic, normal inspection Eye exam: Present: normal appearance, PERRL, EOMI. Absent: scleral icterus, conjunctival injection, periorbital swelling ENT exam: Present: normal exam, mucous membranes moist Neck exam: Present: normal inspection. Absent: tenderness, meningismus, lymphadenopathy Respiratory exam: Present: normal lung sounds bilaterally. Absent: respiratory distress, wheezes, rales, rhonchi, stridor Cardiovascular Exam: Present: regular rate, normal rhythm, normal heart sounds. Absent: systolic murmur, diastolic murmur, rubs, gallop, clicks GI/Abdominal exam: Present: soft, tenderness (Mild epigastric and suprapubic tenderness), normal bowel sounds. Absent: distended, guarding, rebound, rigid Back exam: Absent: CVA tenderness (R), CVA tenderness (L) Neurological exam: Present: alert Skin exam: Present: warm, dry, intact, normal color. Absent: rash Course Vital Signs 12/05/19 15:30 Temperature 98.2 F Pulse Rate 103 H Respiratory 20 Rate Blood Pressure 99/55 O2 Sat by Pulse 100 Oximetry Medical Decision Making - Medical Decision Making 24-year-old female presented for abdominal pain . Patient ultrasound shows 5 weeks and 3 days. Patient does not that her dates could be off because she was on control and she is not actually sure when she was she had some bleeding in September and that she had a. Patient states that she had a positive at the end of October. Patient has no signs of bleeding at this time. She is advised to return if she has any bleeding for RhoGAM. She will follow-up with her ASSISTANT PROFESSOR OF [employer]Y. Return parameters discussed - Lab Data Result diagrams: 12/05/19 16:12 12/05/19 16:12 Lab Results 12/05/19 12/05/19 12/05/19 Range/Units 16:12 16:12 16:12 WBC 8.5 (3.8-10.6) k/uL RBC 4.53 (3.80-5.40) m/uL Hgb 14.0 (11.4-16.0) gm/dL Hct 41.5 (34.0-46.0) % MCV 91.5 (80.0-100.0) fL MCH 30.9 (25.0-35.0) pg MCHC 33.7 (31.0-37.0) g/dL RDW 12.2 (11.5-15.5) % Sodium 135 L (137-145) mmol/L Potassium 4.5 (3.5-5.1) mmol/L Chloride 107 (98-107) mmol/L Carbon Dioxide 19 L (22-30) mmol/L Anion Gap 9 mmol/L BUN 12 (7-17) mg/dL Creatinine 0.58 (0.52-1.04) mg/dL Est GFR (CKD-EPI)AfAm >90 (>60 ml/min/1.73 sqM) Est GFR (CKD-EPI)NonAf >90 (>60 ml/min/1.73 sqM) Glucose 86 (74-99) mg/dL Calcium 9.4 (8.4-10.2) mg/dL Total Bilirubin 0.4 (0.2-1.3) mg/dL AST 31 (14-36) U/L ALT 17 (4-34) U/L Alkaline Phosphatase 86 (38-126) U/L Total Protein 7.4 (6.3-8.2) g/dL Albumin 4.4 (3.5-5.0) g/dL Lipase 104 (23-300) U/L Urine Color Yellow Urine Appearance Clear (Clear) Urine pH 6.5 (5.0-8.0) Ur Specific [place] 1.029 (1.001-1.035) Urine Protein Negative (Negative) Urine Glucose (UA) Negative (Negative) Urine Ketones Negative (Negative) Urine Blood Negative (Negative) Urine Nitrite Negative (Negative) Urine Bilirubin Negative (Negative) Urine Urobilinogen 3.0 (<2.0) mg/dL Ur Leukocyte Esterase Small H (Negative) Urine RBC 2 (0-5) /hpf Urine WBC 2 (0-5) /hpf Ur Squamous Epith Cells 4 (0-4) /hpf Urine Mucus Moderate H (None) /hpf Disposition Clinical Impression: Abdominal pain in Disposition: HOME SELF-CARE Condition: Stable Instructions (If sedation given, give patient instructions): Abdominal Pain in (ED) Additional Instructions: Please return to the Emergency Department if symptoms worsen or any other concerns. Is patient prescribed a controlled substance at d/c from ED?: No Referrals: Maru Gan MD [Primary Care Provider] - 1-2 days Time of Disposition: 16:57
--- NOTE | 2019-12-05 16:50 | US ---
EXAMINATION TYPE: Transabdominal DATE OF EXAM: 12/05/2019 4:20 PM COMPARISON: NONE CLINICAL HISTORY: pain. generalized abdominal pain EXAM PERFORMED: Transabdominal (TA) EXAM MEASUREMENTS: GESTATIONAL AGE / DATING Physician Established: Not yet established Dates by LMP: 10/10/2019 (8 weeks/ 0 days) EDC: 07/16/2020 Dates by First Scan: No previous this is first scan Dates by Current Scan for: Unable to date by today's study MATERNAL ANATOMY Uterus: 6.9 x 3.7 x 6.5 cm Right Ovary: 3.1 x 2.5 x 2.6 cm Left Ovary: 1.8 x 1.1 x 2.1 cm Post CDS / Adnexa: wnl Presence of free fluid: none GESTATION / SURVEY MSD: 1.3 cm (5 weeks/3 days) Yolk Sac (normal less than 6mm): 0.3 cm Date of LMP: 10/10/2019 Beta HcG (if available): not available Gestational sac and yolk sac within uterus. Gestational sac measures 5 weeks 3 days. Appears as jignesh l developing IUP that does not correlate with LMP. IMPRESSION: Intrauterine gestational sac measures 1.3 cm corresponding to 5 weeks and 3 days. Follow-up recommend ed to confirm a living fetus. 3 mm yolk sac present. No adnexal mass.
[2019-12-05 17:07] LABS: Basophils # (M) 0.09 k/uL (0-0.2); Lymphocytes # (M) 2.13 k/uL (1.0-4.8); Monocytes # (M) 0.51 k/uL (0-1.0); Neutrophils # (M) 5.78 k/uL (1.3-7.7); Neutrophils % (M) 68 %; Nucleated Red Blood Cells 0 /100 WBC (0-0); Platelet Count 217 k/uL (150-450); Total Cells Counted 100; Toxic Granulation Present
[2019-12-05 17:15] LABS: HCG,Quantitative Serum 23075.9 mIU/mL
[2019-12-05 17:21] VITALS: BP 125/69; PULSE 75; RESP 16
== END 2019-12-05 17:28 | disposition home or self-care (01) ==
LOC: EC 15:14
DX: O99.89 Other specified diseases and conditions complicating pregnancy, childbirth and the puerperium (principal); R10.30 Lower abdominal pain, unspecified; R68.89 Other general symptoms and signs; O99.341 Other mental disorders complicating pregnancy, first trimester; F31.9 Bipolar disorder, unspecified; F41.9 Anxiety disorder, unspecified; Z88.8 Allergy status to other drugs, medicaments and biological substances; Z91.048 Other nonmedicinal substance allergy status; Z79.899 Other long term (current) drug therapy; Z3A.01 Less than 8 weeks gestation of pregnancy; Z53.8 Procedure and treatment not carried out for other reasons
CPT/HCPCS: 36415; 76801; 80053; 81001; 83690; 84702; 85025; 96360; 99284

== ENCOUNTER 2020-05-29 10:34 | Outpatient (CLI) | payer OTHER ==
[2020-05-29 11:29] VITALS: BP 109/58; PULSE 88; RESP 16; TEMP 97.5
--- NOTE | 2020-05-31 11:38 | P.MSEPDOC ---
Presenting Problems - Arrival Data Date of Arrival on Unit: 05/29/20 Time of Arrival on Unit: 10:34 Mode of Transport: Ambulatory - Complaint OB-Reason for Admission/Chief Complaint: Rule Out SROM, Pain Comment: constant back pain and pelvic pressure Medical History - Information : 4 Para: 2 Term: 2 : 0 Abortions: Spontaneous or Elective: 1 Number of Living Children: 2 - Gestational Age Gestational Age by AUNG (wks/days): 30 Weeks and 4 Days Review of Systems - Review of Systems Constitutional: No problems Breast: No problems ENT: No problems Cardiovascular: No problems Respiratory: No problems Gastrointestinal: No problems Genitourinary: No problems Musculoskeletal: No problems Neurological: No problems Skin: No problems Vital Signs - Temperature Temperature: 97.5 F Temperature Source: Temporal Artery Scan - Pulse Right Sitting Pulse Rate: 88 Pulse Assessment Method: Automatic Cuff - Respirations Respiratory Rate: 16 Oxygen Delivery Method: Room Air - Blood Pressure Right Arm Blood Pressure: 109/58 Blood Pressure Mean: 75 Blood Pressure Source: Automatic Cuff Medical Screen Scoring (Pre) - Cervical Exam Dilation: 0 cm = 0 Membranes: Intact - Uterine Contractions Frequency: N/A Duration: N/A Intensity: N/A - Maternal Vital Signs Maternal Temperature: N/A Maternal Blood Pressure: N/A Signs of Preeclampsia: N/A Maternal Respirations: N/A - Maternal Trauma Maternal Trauma: N/A - Assessment - Baby A Baseline FHR: 135 Heart Rate - NICHD Category: Category I (Normal) = 0 NST: Reactive Position: N/A Station: N/A - Total Score - Baby A Total Score - Baby A: 0 - Total Score - Baby B Total Score - Baby B: 0 - Total Score - Baby C Total Score - Baby C: 0 - Level of Risk - Baby A Level of Risk - Baby A: Low (0-5) - Level of Risk - Baby B Level of Risk - Baby B: Low (0-5) - Level of Risk - Baby C Level of Risk - Baby C: Low (0-5) Physician Notification (Pre) - Physician Notified Physician Notified Date: 05/29/20 Physician Notified Time: 11:20 New Order Received: Yes (d/c home) Disposition - Disposition OB Disposition: Discharge to home, Written follow up instructions reviewed Discharge Date: 05/29/20 Discharge Time: 11:20 I agree with the RN Medical Screening Exam: Yes Risk & Benefit of care provided described in d/c instruction: Yes Diagnosis: false labor
== END 2020-05-29 11:20 | disposition home or self-care (01) ==
LOC: FBPOP 10:34
PROVIDERS: ATTEND Obstetrics & Gynecology
DX: O47.9 False labor, unspecified (principal); Z3A.30 30 weeks gestation of pregnancy
CPT/HCPCS: 59025; 84112; G0463; 99213

== ENCOUNTER 2020-07-11 11:47 | Outpatient (CLI) | payer OTHER ==
[2020-07-11] MEDS ORDERED: LACTATED RINGERS 1,000 ML IV SCH (13:15)
[2020-07-11 17:23] VITALS: BP 106/60; PULSE 91; RESP 16; TEMP 97.8
--- NOTE | 2020-07-21 08:52 | P.MSEPDOC ---
Presenting Problems - Arrival Data Date of Arrival on Unit: 07/11/20 Time of Arrival on Unit: 12:00 Mode of Transport: Ambulatory - Complaint OB-Reason for Admission/Chief Complaint: Possible Onset of Labor Medical History - Information : 4 Para: 2 Term: 4 : 1 Abortions: Spontaneous or Elective: 1 Number of Living Children: 2 - Gestational Age Gestational Age by AUNG (wks/days): 36 Weeks and 5 Days Review of Systems - Review of Systems Constitutional: No problems Breast: No problems ENT: No problems Cardiovascular: No problems Respiratory: No problems Gastrointestinal: No problems Genitourinary: No problems Musculoskeletal: No problems Neurological: No problems Skin: No problems Vital Signs - Temperature Temperature: 97.8 F Temperature Source: Temporal Artery Scan - Pulse Right Pulse Rate: 91 Pulse Assessment Method: Automatic Cuff - Respirations Respiratory Rate: 16 Oxygen Delivery Method: Room Air O2 Sat by Pulse Oximetry: 100 - Blood Pressure Right Arm Blood Pressure: 106/60 Blood Pressure Mean: 75 Blood Pressure Source: Automatic Cuff Medical Screen Scoring (Pre) - Cervical Exam Dilation: 1-3 cm = 1 Effacement: More than 50% = 2 Membranes: Intact - Uterine Contractions Frequency: > or = 36 weeks =2 Duration: N/A Intensity: N/A - Maternal Vital Signs Maternal Temperature: N/A Maternal Blood Pressure: N/A Signs of Preeclampsia: N/A Maternal Respirations: N/A - Maternal Trauma Maternal Trauma: N/A - Assessment - Baby A Baseline FHR: 120 Heart Rate - NICHD Category: Category I (Normal) = 0 NST: Reactive Position: N/A Station: N/A - Total Score - Baby A Total Score - Baby A: 5 - Total Score - Baby B Total Score - Baby B: 5 - Total Score - Baby C Total Score - Baby C: 5 - Level of Risk - Baby A Level of Risk - Baby A: Low (0-5) - Level of Risk - Baby B Level of Risk - Baby B: Low (0-5) - Level of Risk - Baby C Level of Risk - Baby C: Low (0-5) Physician Notification (Pre) - Physician Notified Physician Notified Date: 07/11/20 Physician Notified Time: 13:00 New Order Received: Yes (discharge home if no change in cervix) Disposition - Disposition OB Disposition: Discharge to home Discharge Date: 07/11/20 Discharge Time: 14:18 I agree with the RN Medical Screening Exam: Yes Risk & Benefit of care provided described in d/c instruction: Yes Diagnosis: FALSE LABOR BEFORE 37 COMPLETED WEEKS OF GEST, THIRD TRI
== END 2020-07-11 14:20 | disposition home or self-care (01) ==
LOC: FBPOP 11:47
PROVIDERS: ATTEND Obstetrics & Gynecology
DX: O47.03 False labor before 37 completed weeks of gestation, third trimester (principal); Z3A.36 36 weeks gestation of pregnancy
CPT/HCPCS: 59025; 96360; G0463; 99213

== ENCOUNTER 2020-07-26 02:50 | Inpatient (IN) | payer OTHER ==
[2020-07-26] MEDS ORDERED: ACETAMINOPHEN TAB 325 MG TAB PO PRN (03:26)
[2020-07-26] MEDS ORDERED: diphenhydrAMINE 50 MG/ML 1 ML VIAL IVP PRN ×2 (03:26)
[2020-07-26] MEDS ORDERED: MEASLES-MUMPS-RUBELLA VACC/PF 12,500 UNIT/0.5 ML VIAL SQ ONE (03:26)
[2020-07-26] MEDS ORDERED: BENZOCAINE/MENTHOL SPRAY 1 GM/SPRAY AEROSOL TOPICAL PRN (03:26)
[2020-07-26] MEDS ORDERED: ZOLPIDEM 5 MG TAB PO PRN (03:26)
[2020-07-26] MEDS ORDERED: LANOLIN CREAM 5 GM TUBE TOPICAL PRN (03:26)
[2020-07-26] MEDS ORDERED: diphenhydrAMINE 25 MG CAP PO PRN (03:26)
[2020-07-26] MEDS ORDERED: SIMETHICONE 80 MG CHEWABLE PO PRN (03:26)
[2020-07-26] MEDS ORDERED: HYDROCORTISONE 2.5% RECTAL CREAM 30 GM TUBE RECTAL PRN (03:26)
[2020-07-26] MEDS ORDERED: diphenhydrAMINE 50 MG CAP PO PRN (03:26)
[2020-07-26] MEDS ORDERED: OXYTOCIN 20 UNITS/1000 ML NS 1,000 ML IV SCH (03:30)
[2020-07-26] MEDS ORDERED: OXYTOCIN 10 UNIT/ML 1 ML VIAL IM PRN (03:35)
[2020-07-26] MEDS ORDERED: LIDOCAINE 0.5% (PF) 5 MG/ML (50 ML SDV) SQ PRN (03:35)
--- NOTE | 2020-07-26 03:36 | P.HPOB ---
History of Present Illness H&P Date: 07/26/20 Chief Complaint: Intrauterine at term: Active labor Patient is 25-year-old at 38 weeks gestation who arrived in active labor. She believes the contractions began approximately one hour prior to her arrival and that she began having very strongly shortly after getting here. At arrival in labor and delivery she was dilated 9 cm bulging bag and also had spontaneous rupture membranes upon moving to a labor room. She precipitously delivered. She denies having any other competitions or problems with the and she is feeling well at this time. Category 1 tracing is noted. There is no record available at this time will have updated history and physical added later. Past medical history: None Past surgical history: None Family history: Noncontributory Social history: Denies alcohol, tobacco, illicit drug use ALLERGIES: Lamictal (rash). On physical exam vital signs are stable and afebrile. Heart regular, lungs clear, extremities without pain. Abdomen soft and gravid uterus is noted. Assessment intrauterine at term: Plan expect spontaneous vaginal delivery Past Medical History Past Medical History: No Reported History Additional Past Medical History / Comment(s): ovarian cyst History of Any Multi-Drug Resistant Organisms: None Reported Past Surgical History: No Surgical Hx Reported Past Anesthesia/Blood Transfusion Reactions: No Reported Reaction Smoking Status: Never smoker - Past Family History Father Family Medical History: Diabetes Mellitus Mother Family Medical History: No Reported History Medications and Allergies Home Medications Medication Instructions Recorded Confirmed Type Fdv-Atdz-Bpgas Acid 1 cap PO DAILY 07/16/18 07/11/20 History [-U Capsule (formulary)] FLUoxetine HCL [PROzac] 1 tab PO DAILY 01/15/19 07/11/20 History Allergies Allergy/AdvReac Type Severity Reaction Status Date / Time lamotrigine [From Lamictal] Allergy Rash/Hives Verified 07/11/20 11:59 DUST Allergy Unknown SNEEZING, Uncoded 07/11/20 11:59 RUNNY NOSE. Exam Osteopathic Statement: *. No significant issues noted on an osteopathic structural exam other than those noted in the History and Physical/Consult. - OBG Physical Exam Breast: both: normal (no masses) Abdomen: bowel sounds normal, no diffuse tenderness, no bruit present, no guarding noted, no hepatomegaly, no splenomegaly, no mass Vulva: both: normal Vagina: normal moisture, no discharge Cervix: no lesion, no discharge Uterus: normal size, normal contour Adnexa: both: normal Anus/Rectum: normal perianal skin, no rectal mass, no hemorrhoids, heme negative
--- NOTE | 2020-07-26 03:38 | P.PROBDLV ---
Vaginal Delivery Note - . Vaginal Delivery Note: Patient progressed to complete and pushing and precipitously delivered a viable male over an intact perineum. Baby delivered from left occiput anterior position with gentle downward upper traction the anterior posterior shoulders were easily delivered followed by the remainder the baby. Mouth nares were then bulb suctioned and baby was placed on mother's abdomen where the umbilical cord was allowed to pulsate for 45 seconds prior to clamping and cutting. Cord blood was then collected. Consent was then delivered intact Pitocin was added to the IV. scores were 8 at one and 9 at 5 minutes respectively. Weight was 8 lbs. 5 oz. Both mother and baby are stable following delivery.
[2020-07-26 03:45] VITALS: RESP 16
[2020-07-26 03:48] LABS: Basophils % (A) 0 %; Eosinophils # (A) 0.1 k/uL (0-0.7); Eosinophils % (A) 1 %; HGB 12.2 gm/dL (11.4-16.0); Lymphocytes % (A) 19 %; MCH 30.7 pg (25.0-35.0); MCHC 32.9 g/dL (31.0-37.0); MCV 93.5 fL (80.0-100.0); Monocytes # (A) 0.4 k/uL (0-1.0); Monocytes % (A) 4 %; Neutrophils # (A) 7.6 k/uL (1.3-7.7); Neutrophils % (A) 74 %; Platelet Count 195 k/uL (150-450); RBC 3.96 m/uL (3.80-5.40); RDW 13.9 % (11.5-15.5); WBC 10.4 k/uL (3.8-10.6)
[2020-07-26] MEDS: LACTATED RINGERS 1,000 ML IV SCH ×3 (04:17→21:02)
[2020-07-26] MEDS: IBUPROFEN 600 MG TAB PO PRN ×2 (04:32→18:40)
[2020-07-26] MEDS ORDERED: Rhogam IMMUNE GLOBULIN 1,500 UNIT/1 ML IM ONE (04:46)
--- NOTE | 2020-07-26 07:48 | P.PN ---
Progress Note - Text Progress Note Date: 07/26/20 This is a 25-year-old 4 now para 3 woman who presented at 38+ weeks gestation in advanced active labor. I was contacted by phone regarding her arrival in triage at 2:58 AM. My presence was requested as patient was 9+ centimeters dilated and multiparous. I arrived on labor and delivery unit at 3:14 AM. I proceeded directly to the room. Delivery was imminent and Dr. Puentes was already gowned and gloved at the bedside. He had been contacted by the labor and delivery staff to attend the delivery. The patient then did go on to have a rapid delivery of a liveborn . Please see his delivery summary for details. Patient's record is not available at this time for review. I Appreciate Dr. Roque's availability.
[2020-07-26] MEDS: SENNOSIDES-DOCUSATE SODIUM 1 EACH TAB PO SCH ×2 (08:00→21:01)
[2020-07-27 06:07] LABS: Basophils % (A) 0 %; Eosinophils # (A) 0.1 k/uL (0-0.7); Eosinophils % (A) 1 %; HCT 34.4 % (34.0-46.0); HGB 11.1 gm/dL (11.4-16.0); Lymphocytes % (A) 22 %; MCH 30.7 pg (25.0-35.0); MCHC 32.4 g/dL (31.0-37.0); MCV 94.9 fL (80.0-100.0); Monocytes # (A) 0.5 k/uL (0-1.0); Monocytes % (A) 5 %; Neutrophils # (A) 6.6 k/uL (1.3-7.7); Neutrophils % (A) 71 %; Platelet Count 172 k/uL (150-450); RBC 3.62 m/uL (3.80-5.40); WBC 9.4 k/uL (3.8-10.6)
--- NOTE | 2020-07-27 07:25 | P.DS ---
Providers Date of admission: 07/26/20 02:50 Expected date of discharge: 07/27/20 Attending physician: Kiera Eaton Primary care physician: Stated None Hospital Course: This is a 25-year-old white female 4 para 2012 EDC 08/03/2020 at 38-6/7 weeks' gestation. Patient presented from home and active spontaneous labor. unremarkable, group B strep cultures negative, blood type A negative, rubella status immune. Please see dictated history and physical for details. Patient went on to very quickly deliver a liveborn male vaginally, scores of 8 and 9 at one and 5 minutes respectively. There were no perineal lacerations encountered. Infant weighed 8 pounds 4.6 ounces or 3760 g. Please see dictated delivery note for details. This morning the patient is doing quite well. She is voiding, and bleeding, passing flatus without difficulty. Vital signs are stable and she is afebrile. Fundus is firm and in the midline, symmetric and 18 week size. Extremities are negative for edema. infant is doing well, circumcision has been performed. Patient is judged to be in very good condition for discharge home. She'll follow-up with me in the office in 6 weeks. I have reminded her no intercourse, tampons or douching. She will use [id number] Advil or Aleve, or Motrin as needed for pain. I've asked her to call with any fevers shakes or chills, foul smelling or copious lochia, with the passage of large blood clots, with any pain not alleviated by [id number]-oculozg products, or indeed with any concerns. We have briefly reviewed options for contraception and we will discuss this further in the office. Assessment: Doing well day #1 Patient Condition at Discharge: Good Plan - Discharge Summary Discharge Rx Participant: No New Discharge Prescriptions: No Action [id number]-Pllt-Rttgf Acid [-U Capsule (formulary)] 1 cap PO DAILY FLUoxetine HCL [PROzac] 1 tab PO DAILY Discharge Medication List Bev-Jjev-Qfvlk Acid [-U Capsule (formulary)] 1 cap PO DAILY 07/16/18 [History] FLUoxetine HCL [PROzac] 1 tab PO DAILY 01/15/19 [History] Follow up Appointment(s)/Referral(s): Kiera Eaton MD [STAFF PHYSICIAN] - 6 Weeks Discharge Disposition: HOME SELF-CARE
[2020-07-27 08:12] VITALS: BP 105/60; PULSE 76; TEMP 97.9
[2020-07-27] MEDS: SENNOSIDES-DOCUSATE SODIUM 1 EACH TAB PO SCH (08:12)
== END 2020-07-27 11:45 | disposition home or self-care (01) | DRG 807 ==
LOC: 4FBP 02:50
PROVIDERS: ADMIT Obstetrics & Gynecology; ATTEND Obstetrics & Gynecology
PROC: 10E0XZZ Delivery of Products of Conception, External Approach (ICD-10-PCS; principal; 2020-07-26)
DX: O99.52 Diseases of the respiratory system complicating childbirth (principal); Z37.0 Single live birth; J45.909 Unspecified asthma, uncomplicated; O62.3 Precipitate labor; O99.344 Other mental disorders complicating childbirth; F41.9 Anxiety disorder, unspecified; Z3A.38 38 weeks gestation of pregnancy; Z83.3 Family history of diabetes mellitus; Z88.8 Allergy status to other drugs, medicaments and biological substances; Z91.09 Other allergy status, other than to drugs and biological substances
CPT/HCPCS: 85025; 85461; 86850; 86870; 86880; 86900; 86901

== ENCOUNTER → 2020-09-13 | Outpatient (CLI) | payer OTHER ==
[2020-09-13 17:16] LABS: Basophils % (A) 1 %; Eosinophils # (A) 0.1 k/uL (0-0.7); Eosinophils % (A) 1 %; HCT 43.3 % (34.0-46.0); HGB 13.6 gm/dL (11.4-16.0); Lymphocytes # (A) 2.2 k/uL (1.0-4.8); Lymphocytes % (A) 36 %; MCH 28.8 pg (25.0-35.0); MCHC 31.3 g/dL (31.0-37.0); Mean Platelet Volume 7.9; Monocytes # (A) 0.3 k/uL (0-1.0); Monocytes % (A) 5 %; Neutrophils # (A) 3.3 k/uL (1.3-7.7); Neutrophils % (A) 55 %; Platelet Count 240 k/uL (150-450); RBC 4.71 m/uL (3.80-5.40); RDW 13.8 % (11.5-15.5)
== END | disposition home or self-care (01) ==
LOC: LABWHC1 16:11
PROVIDERS: ATTEND Obstetrics & Gynecology
DX: Z01.818 Encounter for other preprocedural examination (principal)
CPT/HCPCS: 85025

== ENCOUNTER 2020-09-26 07:34 | Day surgery (SDC) | payer OTHER ==
[2020-09-20 10:02] VITALS: BMI 24.7
[~2020-09-26 07:34] MED LIST: DEXAMETHASONE SOD PHOSPHATE 4 MG/ML 1 ML VIAL IV ONE; LACTATED RINGERS 1,000 ML IV SCH; MIDAZOLAM 2 MG/2 ML VIAL IV PRN; ONDANSETRON 4 MG/2 ML VIAL IVP ONE; Pre Op ABX Message 1 EACH MISC MISCELLANE ONE; SCOPOLAMINE 1.5MG/72HR PATCH TRANSDERM ONE
[2020-09-26] MEDS ORDERED: LIDOCAINE 1% (10MG/ML) FOR IV START INTRADERMA ONE (07:57)
[2020-09-26] MEDS ORDERED: MIDAZOLAM 2 MG/2 ML VIAL ONE (08:26)
[2020-09-26] MEDS ORDERED: PROPOFOL 10 MG/ML 20 ML VIAL IV ONE (08:26)
[2020-09-26] MEDS ORDERED: GLYCOPYRROLATE 0.2 MG/ML 2 ML VIAL ONE (08:26)
[2020-09-26] MEDS ORDERED: NEOSTIGMINE 1 MG/ML 10 ML VIAL ONE (08:26)
[2020-09-26] MEDS ORDERED: SUCCINYLCHOLINE CHLORIDE 100 MG/5 ML SYR IV ONE (08:26)
[2020-09-26] MEDS ORDERED: LIDOCAINE 1% INJ 10MG/ML (20 ML MDV) ONE (08:26)
[2020-09-26] MEDS ORDERED: fentaNYL (PF) 50 MCG/ML 2 ML AMP ONE (08:26)
[2020-09-26] MEDS ORDERED: ROCURONIUM 10 MG/ML (10 ML VIAL) IV ONE (08:26)
[2020-09-26] MEDS ORDERED: KETOROLAC 15 MG/ML 1 ML VIAL ONE (08:26)
[2020-09-26] MEDS ORDERED: BUPIVACAINE (PF) 0.25% 30 ML VIAL SQ ONE ×2 (08:45→09:01)
[2020-09-26] MEDS ORDERED: SILVER NITRATE APPLICATOR 1 EACH STICK..EA. TOPICAL ONE (09:02)
[2020-09-26] MEDS ORDERED: LACTATED RINGERS 1,000 ML IV ONE (09:05)
--- NOTE | 2020-09-26 09:13 | P.OP ---
Date of Procedure: 09/26/20 Preoperative Diagnosis: Undesired fertility Postoperative Diagnosis: Same Procedure(s) Performed: Laparoscopic tubal ligation with Filshie clips Anesthesia: MARY Surgeon: Kiera Eaton Estimated Blood Loss (ml): 25 IV fluids (ml): 900 Urine output (ml): 50 Pathology: none sent Condition: stable Disposition: PACU Operative Findings: Normal-appearing tubes and ovaries, normal-appearing uterus, no evidence of endometriosis or adhesions. Description of Procedure: Patient is brought to the operating suite where a general anesthetic is administered without difficulty. She's placed in the dorsal lithotomy position. The cervix vagina perineal body and abdomen are all prepped and draped in the usual sterile fashion. The appropriate timeout is performed to assure proper patient and procedural identification. Urine hCG is negative. Bladder is drained for approximately 50 mL of clear yellow urine. Weighted speculum was placed into the vagina. Anterior lip of the cervix is grasped with a double-to oth tenaculum. The acorn cannula is attached to the tenaculum and the speculum is removed. Attention was now drawn to the abdomen. A small infraumbilical incision is made and the varies needle is placed and placement is checked with hanging drop technique. Abdomen is insufflated under low filling pressures of approximately 6-8 mmHg for a total of 3.8 L of CO2 gas. Veress needle is removed. Trochars placed and placement is noted to be atraumatic. A second incision is made suprapubically in the midline, second trochars placed under direct visualization. Uterus is placed and anteverted la teral traction. The right fallopian tube is visualized in its entirety to the fimbriated end. A Filshie clip is placed in the isthmic portion of the tube with care to traverse the entire diameter of the tube into the mesal salpinx. Application appears excellent. Same procedure is carried out on the left tube, again fimbriated and is visualized and clip traverses the entire diameter of the tube into the mesal salpinx. Inspection of the ovaries, uterus, anterior and posterior cul-de-sac and sidewalls, appendix, gallbladder all within normal limits to inspection. CO2 gas was allowed to diffuse. Trochars are removed under direct visualization and fascial defects are clean and dry. 4-0 undyed Monocryl is used for final skin closure in a subcuticular manner. Mastisol and Steri-Strips are applied to the wound. Instrumentation is removed from the vagina. Nitrous stick is used on the anterior lip of the cervix and a small puncture site, hemostasis is excellent. Patient is brought back to recovery room in stable condition with a blood pressure 148/90, pulse 95, 99% O2 saturation. Patient is given Toradol prior to leaving the operative suite. She will follow-up with me in the office in 2 weeks.
[2020-09-26] MEDS: HYDROmorphone 0.5 MG/0.5 ML SYRINGE IVP PRN ×2 (09:25→09:35)
[2020-09-26 09:36] VITALS: TEMP 98.2
[2020-09-26 10:26] VITALS: RESP 20
[2020-09-26] MEDS ORDERED: ACETAMINOPHEN TAB 325 MG TAB ONE (10:31)
[2020-09-26] MEDS ORDERED: ACETAMINOPHEN TAB 325 MG TAB PO ONE (10:31)
[2020-09-26 11:37] VITALS: BP 114/71; PULSE 61
== END 2020-09-26 11:38 | disposition home or self-care (01) ==
LOC: OR 07:34
PROVIDERS: ATTEND Obstetrics & Gynecology
DX: Z30.2 Encounter for sterilization (principal); F41.9 Anxiety disorder, unspecified; F31.9 Bipolar disorder, unspecified; J45.909 Unspecified asthma, uncomplicated; Z79.899 Other long term (current) drug therapy; Z88.1 Allergy status to other antibiotic agents; Z88.8 Allergy status to other drugs, medicaments and biological substances; Z82.49 Family history of ischemic heart disease and other diseases of the circulatory system; Z83.3 Family history of diabetes mellitus
CPT/HCPCS: 81025; 58671; J2250; J1100; J2710; J2405; J2001; J3010; J1885; J0330; J2704; J1170

== ENCOUNTER 2021-09-18 08:31 | Emergency (ER) | payer OTHER ==
[2021-09-18 08:35] VITALS: TEMP 98.2
--- NOTE | 2021-09-18 11:15 | ED ---
URI HPI - General Chief Complaint: Upper Respiratory Infection Stated Complaint: runny nose, fever, cough Time Seen by Provider: 09/18/21 08:55 Source: patient, RN notes reviewed Mode of arrival: ambulatory Limitations: no limitations - History of Present Illness Initial Comments: Patient is a 26-year-old female that presents to the emergency room complaining of upper respiratory tract symptoms. She notes that her oldest daughter was recently diagnosed with upper respiratory tract infection and is having similar symptoms such as cough and runny nose and sinus pressure. Patient was otherwise well-appearing in no apparent distress. She denied any chest pains worse breath headache nausea vomiting diarrhea constipation fever fatigue chills. - Related Data Home Medications Medication Instructions Recorded Confirmed Acetaminophen [Tylenol] 325 mg PO Q4H PRN 09/18/21 09/18/21 Loratadine [Claritin] 10 mg PO DAILY 09/18/21 09/18/21 Allergies Allergy/AdvReac Type Severity Reaction Status Date / Time lamotrigine [From Lamictal] Allergy Rash/Hives Verified 09/26/20 07:45 DUST Allergy Unknown SNEEZING, Uncoded 09/26/20 07:45 RUNNY NOSE. Review of Systems ROS Statement: Those systems with pertinent positive or pertinent negative responses have been documented in the HPI. ROS Other: All systems not noted in ROS Statement are negative. Past Medical History Past Medical History: No Reported History Additional Past Medical History / Comment(s): ovarian cyst History of Any Multi-Drug Resistant Organisms: None Reported Past Surgical History: No Surgical Hx Reported Past Anesthesia/Blood Transfusion Reactions: No Reported Reaction Past Psychological History: Anxiety, Bipolar, Depression Smoking Status: Never smoker Past Alcohol Use History: Occasional Past Drug Use History: None Reported - Past Family History Father Family Medical History: Diabetes Mellitus, Deep Vein Thrombosis (DVT) Mother Family Medical History: No Reported History General Exam Limitations: no limitations General appearance: alert, in no apparent distress Head exam: Present: atraumatic, normocephalic, normal inspection Eye exam: Present: normal appearance, PERRL, EOMI. Absent: scleral icterus, conjunctival injection, periorbital swelling ENT exam: Present: normal exam, mucous membranes moist Neck exam: Present: normal inspection. Absent: tenderness, meningismus, lymphadenopathy Respiratory exam: Present: normal lung sounds bilaterally. Absent: respiratory distress, wheezes, rales, rhonchi, stridor Cardiovascular Exam: Present: regular rate, normal rhythm, normal heart sounds. Absent: systolic murmur, diastolic murmur, rubs, gallop, clicks GI/Abdominal exam: Present: soft, normal bowel sounds. Absent: distended, tenderness, guarding, rebound, rigid Extremities exam: Present: normal inspection, full ROM, normal capillary refill. Absent: tenderness, pedal edema, joint swelling, calf tenderness Neurological exam: Present: alert, oriented X3, CN II-XII intact Psychiatric exam: Present: normal affect, normal mood Skin exam: Present: warm, dry, intact, normal color. Absent: rash Course Vital Signs 09/18/21 08:33 Temperature 98.2 F Pulse Rate 120 H Respiratory 18 Rate Blood Pressure 98/54 O2 Sat by Pulse 98 Oximetry Medical Decision Making - Medical Decision Making 26-year-old female complaining of upper respiratory tract symptoms for the past week. Cepheid 4 Plex ordered. Cepheid 4 Plex negative. Patient most likely has a upper respiratory tract infection of other etiology. Case discussed with Dr. Palmer, patient can discharge home. - Lab Data Lab Results 09/18/21 Range/Units 09:08 Influenza Type A (PCR) Not Detected (Not Detectd) Influenza Type B (PCR) Not Detected (Not Detectd) RSV (PCR) Not Detected (Not Detectd) SARS-CoV-2 (PCR) Not Detected (Not Detectd) Disposition Clinical Impression: Upper respiratory tract infection Disposition: HOME SELF-CARE Condition: Stable Instructions (If sedation given, give patient instructions): Upper Respiratory Infection (ED) Additional Instructions: Please return to the Emergency Department if symptoms worsen or any other concerns. Is patient prescribed a controlled substance at d/c from ED?: No Referrals: Maru Gan MD [Primary Care Provider] - 1-2 days Time of Disposition: 11:15
[2021-09-18 12:19] VITALS: BP 128/78; PULSE 85; RESP 20
== END 2021-09-18 11:23 | disposition home or self-care (01) ==
LOC: EC 08:31
DX: J06.9 Acute upper respiratory infection, unspecified (principal); F41.9 Anxiety disorder, unspecified; F31.9 Bipolar disorder, unspecified; Z72.89 Other problems related to lifestyle
CPT/HCPCS: 87636; 99283

== ENCOUNTER 2022-06-07 08:59 | Emergency (ER) | payer OTHER ==
[2022-06-07 09:07] VITALS: BP 120/71; PULSE 104; RESP 18; TEMP 98.1
[2022-06-07] MEDS ORDERED: SODIUM CHLORIDE 0.9% 1,000 ML IV STA (09:15)
[2022-06-07] MEDS ORDERED: ONDANSETRON 4 MG/2 ML VIAL IVP STA (09:15)
--- NOTE | 2022-06-07 09:24 | ED ---
Abdominal Pain HPI - General Chief Complaint: Abdominal Pain Stated Complaint: Possible ectopic Time Seen by Provider: 06/07/22 09:02 Source: patient, RN notes reviewed Mode of arrival: ambulatory Limitations: no limitations - History of Present Illness Initial Comments: 27-year-old female presents emergency Department chief complaint of right-sided abdominal pain. Patient states that the pain in the right states early Saturday is worsen. Patient states that she was concerned that she may become if she is previously for mental cycle though she had a tubal ligation. Patient does admit to some nausea and vomiting pain he rates from the right lower to the right back denies any history of cholecystomy her appendectomy as any vaginal bleeding vaginal discharge no dysuria hematuria noted states that she's been having hot and cold flashes, states that she generalized does not feel well. - Related Data Home Medications Medication Instructions Recorded Confirmed FLUoxetine HCL [PROzac] 40 mg PO HS 06/07/22 06/07/22 Previous Rx's Medication Instructions Recorded Ibuprofen [Motrin] 600 mg PO Q8HR PRN #20 tab 06/07/22 Ondansetron Odt [Zofran Odt] 4 mg PO Q8HR PRN #10 tab 06/07/22 Allergies Allergy/AdvReac Type Severity Reaction Status Date / Time lamotrigine [From Lamictal] Allergy Rash/Hives Verified 06/07/22 09:07 DUST Allergy Unknown SNEEZING, Uncoded 06/07/22 09:07 RUNNY NOSE. Review of Systems ROS Statement: Those systems with pertinent positive or pertinent negative responses have been documented in the HPI. ROS Other: All systems not noted in ROS Statement are negative. Past Medical History Past Medical History: No Reported History Additional Past Medical History / Comment(s): ovarian cyst History of Any Multi-Drug Resistant Organisms: None Reported Past Surgical History: No Surgical Hx Reported Past Anesthesia/Blood Transfusion Reactions: No Reported Reaction Past Psychological History: Anxiety, Bipolar, Depression Smoking Status: Current some day smoker Past Alcohol Use History: Occasional Past Drug Use History: Marijuana - Past Family History Father Family Medical History: Diabetes Mellitus, Deep Vein Thrombosis (DVT) Mother Family Medical History: No Reported History General Exam Limitations: no limitations General appearance: alert, in no apparent distress Head exam: Present: atraumatic, normocephalic, normal inspection Eye exam: Present: normal appearance, PERRL, EOMI. Absent: scleral icterus, conjunctival injection, periorbital swelling Respiratory exam: Present: normal lung sounds bilaterally. Absent: respiratory distress, wheezes, rales, rhonchi, stridor Cardiovascular Exam: Present: normal rhythm, tachycardia, normal heart sounds. Absent: systolic murmur, diastolic murmur, rubs, gallop, clicks GI/Abdominal exam: Present: soft, tenderness, normal bowel sounds. Absent: distended, guarding, rebound, rigid Back exam: Present: CVA tenderness (R). Absent: CVA tenderness (L) Neurological exam: Present: alert Skin exam: Present: warm, dry, intact, normal color. Absent: rash Course Vital Signs 06/07/22 09:04 Temperature 98.1 F Pulse Rate 104 H Respiratory 18 Rate Blood Pressure 120/71 O2 Sat by Pulse 99 Oximetry Medical Decision Making - Medical Decision Making 27-year-old female presented for right-sided abdominal pain. Patient workup including labs urinalysis and CT were performed. Patient's labs urinalysis unremarkable CT shows fluid, ovarian cysts most likely related to a rupture. Patient negative ECG there is concern for ectopic at this time. Patient be discharged in stable condition return parameters were discussed. - Lab Data Result diagrams: 06/07/22 09:36 06/07/22 09:36 Lab Results 06/07/22 06/07/22 06/07/22 Range/Units 09:36 09:36 09:36 WBC 4.6 (3.8-10.6) k/uL RBC 4.47 (3.80-5.40) m/uL Hgb 13.8 (11.4-16.0) gm/dL Hct 42.1 (34.0-46.0) % MCV 94.2 D (80.0-100.0) fL MCH 30.9 (25.0-35.0) pg MCHC 32.8 (31.0-37.0) g/dL RDW 12.8 (11.5-15.5) % Plt Count 265 (150-450) k/uL MPV 8.0 Neutrophils % 61 % Lymphocytes % 31 % Monocytes % 4 % Eosinophils % 1 % Basophils % 1 % Neutrophils # 2.8 (1.3-7.7) k/uL Lymphocytes # 1.4 (1.0-4.8) k/uL Monocytes # 0.2 (0-1.0) k/uL Eosinophils # 0.1 (0-0.7) k/uL Basophils # 0.0 (0-0.2) k/uL Sodium 139 (137-145) mmol/L Potassium 4.1 (3.5-5.1) mmol/L Chloride 106 (98-107) mmol/L Carbon Dioxide 23 (22-30) mmol/L Anion Gap 10 mmol/L BUN 9 (7-17) mg/dL Creatinine 0.64 (0.52-1.04) mg/dL Est GFR (CKD-EPI)AfAm >90 (>60 ml/min/1.73 sqM) Est GFR (CKD-EPI)NonAf >90 (>60 ml/min/1.73 sqM) Glucose 87 (74-99) mg/dL Plasma Lactic Acid Damian 0.9 (0.7-2.0) mmol/L Calcium 9.2 (8.4-10.2) mg/dL Total Bilirubin 0.4 (0.2-1.3) mg/dL AST 26 (14-36) U/L ALT 17 (4-34) U/L Alkaline Phosphatase 72 (38-126) U/L Total Protein 7.2 (6.3-8.2) g/dL Albumin 4.4 (3.5-5.0) g/dL Lipase 55 (23-300) U/L Urine Color Urine Appearance (Clear) Urine pH (5.0-8.0) Ur Specific Fenton (1.001-1.035) Urine Protein (Negative) Urine Glucose (UA) (Negative) Urine Ketones (Negative) Urine Blood (Negative) Urine Nitrite (Negative) Urine Bilirubin (Negative) Urine Urobilinogen (<2.0) mg/dL Ur Leukocyte Esterase (Negative) Urine RBC (0-5) /hpf Urine WBC (0-5) /hpf Ur Squamous Epith Cells (0-4) /hpf Urine Bacteria (None) /hpf Urine Mucus (None) /hpf Urine HCG, Qual (Not Detectd) 06/07/22 06/07/22 Range/Units 09:50 09:50 WBC (3.8-10.6) k/uL RBC (3.80-5.40) m/uL Hgb (11.4-16.0) gm/dL Hct (34.0-46.0) % MCV (80.0-100.0) fL MCH (25.0-35.0) pg MCHC (31.0-37.0) g/dL RDW (11.5-15.5) % Plt Count (150-450) k/uL MPV Neutrophils % % Lymphocytes % % Monocytes % % Eosinophils % % Basophils % % Neutrophils # (1.3-7.7) k/uL Lymphocytes # (1.0-4.8) k/uL Monocytes # (0-1.0) k/uL Eosinophils # (0-0.7) k/uL Basophils # (0-0.2) k/uL Sodium (137-145) mmol/L Potassium (3.5-5.1) mmol/L Chloride (98-107) mmol/L Carbon Dioxide (22-30) mmol/L Anion Gap mmol/L BUN (7-17) mg/dL Creatinine (0.52-1.04) mg/dL Est GFR (CKD-EPI)AfAm (>60 ml/min/1.73 sqM) Est GFR (CKD-EPI)NonAf (>60 ml/min/1.73 sqM) Glucose (74-99) mg/dL Plasma Lactic Acid Damian (0.7-2.0) mmol/L Calcium (8.4-10.2) mg/dL Total Bilirubin (0.2-1.3) mg/dL AST (14-36) U/L ALT (4-34) U/L Alkaline Phosphatase (38-126) U/L Total Protein (6.3-8.2) g/dL Albumin (3.5-5.0) g/dL Lipase (23-300) U/L Urine Color Yellow Urine Appearance Cloudy H (Clear) Urine pH 8.0 (5.0-8.0) Ur Specific Fenton 1.020 (1.001-1.035) Urine Protein Trace H (Negative) Urine Glucose (UA) Negative (Negative) Urine Ketones Negative (Negative) Urine Blood Negative (Negative) Urine Nitrite Negative (Negative) Urine Bilirubin Negative (Negative) Urine Urobilinogen <2.0 (<2.0) mg/dL Ur Leukocyte Esterase Negative (Negative) Urine RBC <1 (0-5) /hpf Urine WBC 2 (0-5) /hpf Ur Squamous Epith Cells 19 H (0-4) /hpf Urine Bacteria Rare H (None) /hpf Urine Mucus Occasional H (None) /hpf Urine HCG, Qual Not Detected (Not Detectd) Disposition Clinical Impression: Rupture of cyst of right ovary Disposition: HOME SELF-CARE Condition: Stable Instructions (If sedation given, give patient instructions): Ovarian Cyst (ED), Ruptured Ovarian Cyst (ED) Additional Instructions: Please return to the Emergency Department if symptoms worsen or any other concerns. Prescriptions: Ibuprofen [Motrin] 600 mg PO Q8HR PRN #20 tab PRN Reason: Pain Ondansetron Odt [Zofran Odt] 4 mg PO Q8HR PRN #10 tab PRN Reason: Nausea Is patient prescribed a controlled substance at d/c from ED?: No Referrals: Maru Gan MD [Primary Care Provider] - 1-2 days Time of Disposition: 13:16
[2022-06-07 10:17] LABS: ALT 17 U/L (4-34); AST 26 U/L (14-36); African American GFR (CKD) >90 (>60 ml/min/1.73 sqM); Albumin 4.4 g/dL (3.5-5.0); Alkaline Phosphatase 72 U/L (38-126); Anion Gap 10 mmol/L; Blood Urea Nitrogen 9 mg/dL (7-17); Calcium 9.2 mg/dL (8.4-10.2); Carbon Dioxide 23 mmol/L (22-30); Chloride 106 mmol/L (98-107); Glucose 87 mg/dL (74-99); Lipase 55 U/L (23-300); Non-African American GFR(CKD) >90 (>60 ml/min/1.73 sqM); Potassium 4.1 mmol/L (3.5-5.1); Sodium 139 mmol/L (137-145); Total Bilirubin 0.4 mg/dL (0.2-1.3); Total Protein 7.2 g/dL (6.3-8.2)
[2022-06-07 10:29] LABS: Basophils % (A) 1 %; Eosinophils # (A) 0.1 k/uL (0-0.7); Eosinophils % (A) 1 %; HCT 42.1 % (34.0-46.0); HGB 13.8 gm/dL (11.4-16.0); Lymphocytes # (A) 1.4 k/uL (1.0-4.8); Lymphocytes % (A) 31 %; MCH 30.9 pg (25.0-35.0); MCHC 32.8 g/dL (31.0-37.0); Monocytes # (A) 0.2 k/uL (0-1.0); Monocytes % (A) 4 %; Neutrophils # (A) 2.8 k/uL (1.3-7.7); Neutrophils % (A) 61 %; Platelet Count 265 k/uL (150-450); RBC 4.47 m/uL (3.80-5.40); RDW 12.8 % (11.5-15.5); WBC 4.6 k/uL (3.8-10.6)
[2022-06-07 10:33] LABS: MCV 94.2 fL (80.0-100.0)
[2022-06-07 11:39] LABS: Appearance,Urine Cloudy (Clear); Bacteria,Urine Rare /hpf; Bilirubin,Urine Negative (Negative); Blood,Urine Negative (Negative); Color,Urine Yellow; Glucose,Urine (UA) Negative (Negative); Ketones,Urine Negative (Negative); Leukocyte Esterase,Urine Negative (Negative); Mucus,Urine Occasional /hpf; Nitrite,Urine Negative (Negative); Protein,Urine Trace (Negative); RBC,Urine <1 /hpf (0-5); Squamous Epithelial Cell,Urine 19 /hpf (0-4); Urobilinogen,Urine <2.0 mg/dL (<2.0); WBC,Urine 2 /hpf (0-5)
--- NOTE | 2022-06-07 13:08 | CT ---
EXAMINATION TYPE: CT abdomen pelvis w con DATE OF EXAM: 06/07/2022 HISTORY: RLQ pain CT DLP: 522.1mGycm Automated Exposure Control for Dose Reduction was Utilized. CONTRAST: CT scan of the abdomen and pelvis is performed without oral but with IV Contrast, patient injected wi th 100 mL of Isovue 300. COMPARISON: CT abdomen and pelvis report 2016 FINDINGS: LUNG BASES: No significant abnormality is appreciated. LIVER/GB: No significant abnormality is appreciated. PANCREAS: No significant abnormality is seen. SPLEEN: No significant abnormality is seen. ADRENALS: No significant abnormality is seen. KIDNEYS: Symmetric cortical quadrant uptake and excretion without hydronephrosis seen bilaterally. In cidental subcentimeter thin-walled cyst in the left kidney lower pole level delayed axial image 26. BOWEL: No suspicious small or large bowel dilatation. Patient has little intra-abdominal fat. No foc al inflammatory change at base of cecum identified. Normal or abnormal appendix not seen with certain ty also described on prior report. Appendix suspected surgically absent. UTERUS/ADNEXA: Anteverted uterus projects to left of midline. Tubal ligation clips are present. Right -sided clip is displaced. Right adnexa has 1.6 cm hyperdense round lesion axial image 56 could reflec t corpus luteal cyst from ovulation. There is low dense material suggesting portion of normal right o varian tissue surrounding this or some free fluid in the pelvis which may not be completely simple. T here is additional moderate amount of free fluid in the pelvis axial image 63 posterior to the uterus LYMPH NODES: No greater than 1cm abdominal or pelvic lymph nodes are appreciated. OSSEOUS STRUCTURES: No significant abnormality is seen. OTHER: No significant additional abnormality is seen. IMPRESSION: Moderate amount of free fluid in the pelvis is nonspecific finding. Possible fluid extens ion into the right adnexa. There is 1.6 cm hyperdense right ovarian lesion could reflect corpus lutea l cyst from ovulation. Correlate with beta-hCG to exclude gestational sac from ectopic as r ight-sided tubal ligation clip is displaced from the desired location. Patient may benefit with pelvi c ultrasound to further evaluate based on clinical correlation.
== END 2022-06-07 14:06 | disposition home or self-care (01) ==
LOC: EC 08:59
DX: N83.201 Unspecified ovarian cyst, right side (principal); F17.200 Nicotine dependence, unspecified, uncomplicated; Z88.8 Allergy status to other drugs, medicaments and biological substances; Z91.09 Other allergy status, other than to drugs and biological substances
CPT/HCPCS: 36415; 80053; 83605; 83690; 85025; 81001; 81025; 74177; 99284; 96374; 96361; J2405; Q9967

== ENCOUNTER 2022-07-29 19:34 | Emergency (ER) | payer OTHER ==
[2022-07-29 19:49] VITALS: BP 111/74; PULSE 99; RESP 20; TEMP 98
[2022-07-29] MEDS ORDERED: KETOROLAC 15 MG/ML 1 ML VIAL IM STA (20:17)
[2022-07-29] MEDS ORDERED: ORPHENADRINE 30 MG/ML 2 ML VIAL IM STA (20:17)
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
--- NOTE | 2022-07-29 20:51 | XR ---
EXAMINATION TYPE: XR chest 2V DATE OF EXAM: 07/29/2022 COMPARISON: 10/18/2016 HISTORY: Chest pain TECHNIQUE: 2 views FINDINGS: Heart is normal. Lungs are clear. Diaphragm is normal. Bony thorax is intact. Pulmonary vas cularity is normal. IMPRESSION: Normal chest. No change.
== END 2022-07-29 21:58 | disposition home or self-care (01) ==
LOC: EC 19:34
DX: S16.1XXA Strain of muscle, fascia and tendon at neck level, initial encounter (principal); M94.0 Chondrocostal junction syndrome [Tietze]; F41.9 Anxiety disorder, unspecified; F31.9 Bipolar disorder, unspecified; F17.200 Nicotine dependence, unspecified, uncomplicated; F12.90 Cannabis use, unspecified, uncomplicated; Z88.8 Allergy status to other drugs, medicaments and biological substances; V89.2XXA Person injured in unspecified motor-vehicle accident, traffic, initial encounter
CPT/HCPCS: 71046; 99284; 96372 ×2; J2360; J1885

== ENCOUNTER → 2024-01-13 | Outpatient (CLI) | payer MEDICAID ==
--- NOTE | 2024-01-13 17:51 | CA ---
Transthoracic Echo Report Name: Tamela Calvin Age: 29 Gender: F : 1995 Exam Date: 01/13/2024 15:35 Exam Location: [place] [facility] Ht (in): 63 Wt (lb): 130 Ordering Physician: Rodney Vo MD Attending/Referring Phys: Hemodialysis Charge Nurse Madie Eller RDCS Procedure CPT: Indications: R07.9 CHEST PAIN, UNSPECIFIED Cardiac Hx: Technical Quality: Fair Contrast 1: Total Dose (mL): Contrast 2: Total Dose (mL): MEASUREMENTS (Male / Female) Normal Values 2D ECHO LV Diastolic Diameter PLAX 4.0 cm 4.2 - 5.9 / 3.9 - 5.3 cm LV Systolic Diameter PLAX 2.8 cm IVS Diastolic Thickness 1.0 cm 0.6 - 1.0 / 0.6 - 0.9 cm LVPW Diastolic Thickness 1.0 cm 0.6 - 1.0 / 0.6 - 0.9 cm LV Relative Wall Thickness 0.5 RV Internal Dim ED PLAX 2.5 cm LA Volume 32.3 cm??? 18 - 58 / 22 - 52 cm??? LA Volume Index 19.9 cm???/m??? 16 - 28 cm???/m??? M-MODE Aortic Root Diameter MM 2.6 cm LA Systolic Diameter MM 2.9 cm LA Ao Ratio MM 1.1 AV Cusp Separation MM 1.5 cm DOPPLER AV Peak Velocity 106.6 cm/s AV Peak Gradient 4.5 mmHg AV Mean Velocity 73.3 cm/s AV Mean Gradient 2.4 mmHg AV Velocity Time Integral 19.8 cm AI Peak Velocity 262.0 cm/s AI Peak Gradient 27.5 mmHg AI Pressure Half Time 639.3 ms LVOT Peak Velocity 88.0 cm/s LVOT Peak Gradient 3.1 mmHg LVOT Velocity Time Integral 17.6 cm MV Area PHT 2.6 cm??? Mitral E Point Velocity 88.0 cm/s Mitral A Point Velocity 39.2 cm/s Mitral E to A Ratio 2.2 MV Deceleration Time 296.3 ms MV E' Velocity 16.0 cm/s Mitral E to MV E' Ratio 5.5 TR Peak Velocity 205.2 cm/s TR Peak Gradient 16.8 mmHg Right Ventricular Systolic Press 21.8 mmHg FINDINGS Left Ventricle Normal Left ventricular size, wall thickness, systolic function with no obvious regional wall motion abnormalities. Normal Left ventricular diastolic filling pattern. Left ventricular ejection fraction is estimated at 55-60 %. Right Ventricle Normal right ventricular size and function. Right ventricular systolic pressure within normal limits. Right Atrium Normal right atrial size. Left Atrium Normal left atrial size. Mitral Valve Structurally normal mitral valve. Trace to mild mitral regurgitation. Aortic Valve Trileaflet aortic valve. No aortic stenosis. Trace aortic regurgitation. Tricuspid Valve Structurally normal tricuspid valve. Mild tricuspid regurgitation. Pulmonic Valve Structurally normal pulmonic valve. Pericardium No pericardial effusion. Aorta Normal size aortic root and proximal ascending aorta. CONCLUSIONS Normal LV function Previewed by: Dr. Gui Whalen MD (Electronically Signed) Final Date: 13 January 2024 17:50
== END | disposition home or self-care (01) ==
LOC: RADECHMAIN 15:33
PROVIDERS: ATTEND Internal Medicine Cardiovascular Disease
DX: R07.9 Chest pain, unspecified (principal)
CPT/HCPCS: 93306

== ENCOUNTER 2024-04-27 07:17 | Emergency (ER) | payer MEDICAID ==
--- NOTE | 2024-04-27 07:38 | ED ---
General Adult HPI - General Chief complaint: Abdominal Pain Stated complaint: abd pain Time Seen by Provider: 04/27/24 07:26 Source: patient, RN notes reviewed, old records reviewed Mode of arrival: ambulatory Limitations: no limitations - History of Present Illness Initial comments: Patient is a 29-year-old female with past medical history remarkable for cholecystectomy, tubal ligation who presents emergency department complaining of abdominal pain. The patient states the pain started yesterday. States is in the middle and mostly right lower quadrant of her abdomen. Describes it as sharp and achy. Does not radiate anywhere else. Denies any dysuria or hematuria. Patient currently is on her menstrual cycle. Denies constipation or diarrhea. Endorses nausea with nonbilious nonbloody emesis. Denies any chest pain, fevers, chills, shortness of breath. Patient states she is uncertain what is causing this pain. Presents for further evaluation at this time. Despite her being on her menstrual cycle currently, she states that this is much worse pain than what she currently experiences. She still has her appendix.Denies any vaginal discharge or history of STDs. Endorses vaginal bleeding as she is currently on her menstrual cycle. States she does not believe she is as she has a history of tubal ligation. - Related Data Home Medications Medication Instructions Recorded Confirmed FLUoxetine HCL [PROzac] 40 mg PO HS 06/07/22 06/07/22 Previous Rx's Medication Instructions Recorded Ibuprofen [Motrin] 600 mg PO Q8HR PRN #20 tab 06/07/22 Ondansetron Odt [Zofran Odt] 4 mg PO Q8HR PRN #10 tab 06/07/22 Ibuprofen [Motrin] 600 mg PO Q8HR PRN #30 tab 07/29/22 Allergies Allergy/AdvReac Type Severity Reaction Status Date / Time lamotrigine [From Lamictal] Allergy Rash/Hives Verified 04/27/24 07:23 DUST Allergy Unknown SNEEZING, Uncoded 04/27/24 07:23 RUNNY NOSE. Review of Systems ROS Statement: Those systems with pertinent positive or pertinent negative responses have been documented in the HPI. Review of Systems: CONST: Denies fever EYES: Denies blurry vision ENT: Denies nasal congestion C/V: Denies Chest pain RESP: Denies shortness of breath GI: Endorses abdominal pain : Denies dysuria SKIN: Denies rash. MSK: Denies joint pain. NEURO: Denies headache ROS Other: All systems not noted in ROS Statement are negative. Past Medical History Past Medical History: No Reported History Additional Past Medical History / Comment(s): ovarian cyst History of Any Multi-Drug Resistant Organisms: None Reported Past Surgical History: Tubal Ligation Past Anesthesia/Blood Transfusion Reactions: No Reported Reaction Past Psychological History: Anxiety, Bipolar, Depression Smoking Status: Never smoker Past Alcohol Use History: Occasional Past Drug Use History: Marijuana - Past Family History Father Family Medical History: Diabetes Mellitus, Deep Vein Thrombosis (DVT) Mother Family Medical History: No Reported History General Exam - General Exam Comments Initial Comments: General: Appears in mild distress secondary to abdominal pain. HEAD: Normal with no signs of head trauma. EYES: EOMI. ENT: Hearing grossly intact. RESPIRATORY: Clear breath sounds bilaterally. No wheezes, rales, or rhonchi. C/V: Regular rate and rhythm. S1 and S2 auscultated, no edema, peripheral pulses 2+ and intact throughout ABD: Abdomen soft, nondistended. Tender to palpation in the right lower quadrant. No guarding or rebound tenderness. No peritoneal signs. EXT: No obvious deformity. SKIN: No rashes or lesions observed on exposed skin. NEURO: Alert and oriented x 4. Limitations: no limitations Course Vital Signs 04/27/24 07:19 Temperature 98.1 F Pulse Rate 98 Respiratory 18 Rate Blood Pressure 115/63 O2 Sat by Pulse 98 Oximetry Medical Decision Making - Medical Decision Making Was pt. sent in by a medical professional or institution (, PA, TRADE UNION SECRETARY, urgent care, hospital, or fpc...) When possible be specific @ -No Did you speak to anyone other than the patient for history (EMS, parent, family, police, friend...)? What history was obtained from this source @ -No Did you review nursing and triage notes (agree or disagree)? Why? @ -I reviewed and agree with nursing and triage notes Were old charts reviewed (outside hosp., previous admission, EMS record, old EKG, old radiological studies, urgent care reports/EKG's, fpc records)? Report findings @ -Old charts reviewed including CT imaging from May 2022 which revealed patient had a right ovarian cyst at that time. I did review prior pelvic ultrasounds dating back to 2017 which revealed slightly enlarged right ovary compared to left on all of these ultrasounds. Seems to be somewhat chronic finding. Differential Diagnosis (chest pain, altered mental status, abdominal pain women, abdominal pain men, vaginal bleeding, weakness, fever, dyspnea, syncope, headache, dizziness, GI bleed, back pain, seizure, CVA, palpatations, mental hea lth, musculoskeletal)? @ -Differential Abdominal Pain Women: Appendicitis, Cholecystitis, diverticulosis, ischemic bowel, pancreatitis, hepatitis, UTI, gastroenteritis, AAA, incarcerated hernia, bowel obstruction, constipation, inflammatory bowel, hepatitis, peptic ulcer disease, splenic infarction, perforated viscus, vulvitis, ovarian torsion, PID, kidney stone, placenta abruption, this is not meant to be an all-inclusive list EKG interpreted by me (3pts min.). @ -None done X-rays interpreted by me (1pt min.). @ -None done CT interpreted by me (1pt min.). @ -CT abdomen pelvis reveals no obvious acute intra-abdominal process. Mild distention of the urinary bladder seen however patient urinated after CT. No concern for retention. U/S interpreted by me (1pt. min.). @ -Ultrasound of the ovaries reveals a slightly enlarged right ovary compared to left. Radiology concern for possible torsion detorsion. What testing was considered but not performed or refused? (CT, X-rays, U/S, lab s)? Why? @ -None What meds were considered but not given or refused? Why? @ -None Did you discuss the management of the patient with other professionals (professionals i.e. , PA, [employer] SECRETARY, lab, RT, psych nurse, psychologist social, scrub nurse, teacher, ship's electronic warfare officer, case packer and sealer)? Give summary @ -Discussed presentation and ultrasound findings with on-call SPORTS INTERN Dr. Sullivan, due to radiology concern for possible torsion detorsion stay. We discussed the chronic slight enlargement of the right ovary as well as patient's constant abdominal pain versus waxing and waning abdominal pain which would be more indicative of torsion. We agree that clinically, patient does not necessarily present as torsion detorsion as patient was having pain during the ultrasound and after the ultrasound and patient was not torsed during this time. She is in agreement that this is unlikely. Is in agreement with other plan for workup or discharge otherwise. No concern for torsion from SPORTS INTERN. Was smoking cessation discussed for >3mins.? @ -No Was critical care preformed (if so, how long)? @ -No Were there social determinants of health that impacted care today? How? (Homelessness, low income, unemployed, alcoholism, drug addiction, transportation, low edu. Level, literacy, decrease access to med. care, assisted, r ehab)? @ -No Was there de-escalation of care discussed even if they declined (Discuss DNR or withdrawal of care, Hospice)? DNR status @ -No What co-morbidities impacted this encounter? (DM, HTN, Smoking, COPD, CAD, Cancer, CVA, ARF, Chemo, Hep., AIDS, mental health diagnosis, sleep apnea, morbid obesity)? @ -Prior right-sided ovarian cyst. Was patient admitted / discharged? Hospital course, mention meds given and route, prescriptions, significant lab abnormalities, going to OR and other perti nent info. @ -Based on patient's presentation and physical exam, presents to the emergency department with right lower quadrant abdominal pain. We will start with abdominal labs as well as ultrasound for ovarian torsion. Patient was in agreement this plan. She will be symptomatically treated with IV fluids, Toradol, Zofran, Protonix. Vital signs within acceptable limits. CT imaging unremarkable. Ultrasound imaging shows slightly enlarged right ovary compared to left which does seem to be chronic for the patient dating back to ultrasound results from 2017. Laboratory studies are unremarkable except for blood in the urine which is likely secondary to patient being currently on her menstrual cycle. On reevaluation, patient did require morphine prior to CT imaging but is currently pain-free. Has no complaints at this time. We discussed her workup. She will be discharged home at this time. I did discuss my conversation with SPORTS INTERN with her as well. She expressed understanding. Strict return precautions discussed. Recommended follow-up with her PCP. I will provide the patient with a prescription for ODT Zofran, starter pack of Tylenol 3. I instructed the patient to follow up with their PCP in the next 1-3 days. I explained that the patient should return to the emergency department if they experience any worsening symptoms. Strict return precautions were discussed with the patient. The patient expressed understanding of these instructions. I answered all questions that the patient had. The patient was discharged home in good condition with their prescriptions and follow up information. Undiagnosed new problem with uncertain prognosis? @ -No Drug Therapy requiring intensive monitoring for toxicity (Heparin, Nitro, Insulin, Cardizem)? @ -No Were any procedures done? @ -No Diagnosis/symptom? @ -Abdominal pain of unknown etiology Acute, or Chronic, or Acute on Chronic? @ -Acute Uncomplicated (without systemic symptoms) or Complicated (systemic symptoms)? @ -Uncomplicated Side effects of treatment? @ -None Exacerbation, Progression, or Severe Exacerbation] @ -No Poses a threat to life or bodily function? @ -Unlikely - Lab Data Result diagrams: 04/27/24 07:50 04/27/24 07:50 Lab Results 04/27/24 04/27/24 04/27/24 Range/Units 07:50 07:50 07:50 WBC 4.3 (3.8-10.6) k/uL RBC 4.42 (3.80-5.40) m/uL Hgb 13.5 (11.4-16.0) gm/dL Hct 41.1 (34.0-46.0) % MCV 93.1 (80.0-100.0) fL MCH 30.6 (25.0-35.0) pg MCHC 32.8 (31.0-37.0) g/dL RDW 12.2 (11.5-15.5) % Plt Count 255 (150-450) k/uL MPV 7.9 Neutrophils % 54 % Lymphocytes % 36 % Monocytes % 6 % Eosinophils % 2 % Basophils % 0 % Neutrophils # 2.3 (1.3-7.7) k/uL Lymphocytes # 1.5 (1.0-4.8) k/uL Monocytes # 0.2 (0-1.0) k/uL Eosinophils # 0.1 (0-0.7) k/uL Basophils # 0.0 (0-0.2) k/uL PT 10.6 (10.0-12.5) sec INR 1.0 (<1.2) APTT 22.3 (22.0-30.0) sec Sodium (137-145) mmol/L Potassium (3.5-5.1) mmol/L Chloride (98-107) mmol/L Carbon Dioxide (22-30) mmol/L Anion Gap mmol/L BUN (7-17) mg/dL Creatinine (0.52-1.04) mg/dL Est GFR (CKD-EPI)AfAm (>60 ml/min/1.73 sqM) Est GFR (CKD-EPI)NonAf (>60 ml/min/1.73 sqM) Glucose (74-99) mg/dL Plasma Lactic Acid Damian (0.7-2.0) mmol/L Calcium (8.4-10.2) mg/dL Total Bilirubin (0.2-1.3) mg/dL AST (14-36) U/L ALT (4-34) U/L Alkaline Phosphatase (38-126) U/L Total Protein (6.3-8.2) g/dL Albumin (3.5-5.0) g/dL Amylase (30-110) U/L Lipase (23-300) U/L Urine Color Light Yellow Urine Appearance Cloudy H (Clear) Urine pH 8.0 (5.0-8.0) Ur Specific [place] 1.016 (1.001-1.035) Urine Protein Negative (Negative) Urine Glucose (UA) Negative (Negative) Urine Ketones Negative (Negative) Urine Blood Large H (Negative) Urine Nitrite Negative (Negative) Urine Bilirubin Negative (Negative) Urine Urobilinogen <2.0 (<2.0) mg/dL Ur Leukocyte Esterase Moderate H (Negative) Urine RBC <1 (0-5) /hpf Urine WBC 5 (0-5) /hpf Ur Squamous Epith Cells 6 H (0-4) /hpf Amorphous Sediment Moderate H (None) /hpf Urine Bacteria Rare H (None) /hpf Urine Mucus Rare H (None) /hpf Urine HCG, Qual (Not Detectd) 04/27/24 04/27/24 04/27/24 Range/Units 07:50 07:50 07:50 WBC (3.8-10.6) k/uL RBC (3.80-5.40) m/uL Hgb (11.4-16.0) gm/dL Hct (34.0-46.0) % MCV (80.0-100.0) fL MCH (25.0-35.0) pg MCHC (31.0-37.0) g/dL RDW (11.5-15.5) % Plt Count (150-450) k/uL MPV Neutrophils % % Lymphocytes % % Monocytes % % Eosinophils % % Basophils % % Neutrophils # (1.3-7.7) k/uL Lymphocytes # (1.0-4.8) k/uL Monocytes # (0-1.0) k/uL Eosinophils # (0-0.7) k/uL Basophils # (0-0.2) k/uL PT (10.0-12.5) sec INR (<1.2) APTT (22.0-30.0) sec Sodium 139 (137-145) mmol/L Potassium 4.1 (3.5-5.1) mmol/L Chloride 110 H (98-107) mmol/L Carbon Dioxide 22 (22-30) mmol/L Anion Gap 7 mmol/L BUN 16 (7-17) mg/dL Creatinine 0.66 (0.52-1.04) mg/dL Est GFR (CKD-EPI)AfAm >90 (>60 ml/min/1.73 sqM) Est GFR (CKD-EPI)NonAf >90 (>60 ml/min/1.73 sqM) Glucose 87 (74-99) mg/dL Plasma Lactic Acid Damian 1.2 (0.7-2.0) mmol/L Calcium 9.2 (8.4-10.2) mg/dL Total Bilirubin 0.6 (0.2-1.3) mg/dL AST 27 (14-36) U/L ALT 17 (4-34) U/L Alkaline Phosphatase 71 (38-126) U/L Total Protein 6.9 (6.3-8.2) g/dL Albumin 4.2 (3.5-5.0) g/dL Amylase 57 (30-110) U/L Lipase 86 (23-300) U/L Urine Color Urine Appearance (Clear) Urine pH (5.0-8.0) Ur Specific [place] (1.001-1.035) Urine Protein (Negative) Urine Glucose (UA) (Negative) Urine Ketones (Negative) Urine Blood (Negative) Urine Nitrite (Negative) Urine Bilirubin (Negative) Urine Urobilinogen (<2.0) mg/dL Ur Leukocyte Esterase (Negative) Urine RBC (0-5) /hpf Urine WBC (0-5) /hpf Ur Squamous Epith Cells (0-4) /hpf Amorphous Sediment (None) /hpf Urine Bacteria (None) /hpf Urine Mucus (None) /hpf Urine HCG, Qual Not Detected (Not Detectd) Disposition Clinical Impression: Abdominal pain of unknown etiology Disposition: HOME SELF-CARE Condition: Good Instructions (If sedation given, give patient instructions): Abdominal Pain (ED) Is patient prescribed a controlled substance at d/c from ED?: No Referrals: Maru Gan MD [Primary Care Provider] - 1-2 days Time of Disposition: 10:06
[2024-04-27] MEDS: SODIUM CHLORIDE 0.9% 1,000 ML IV STA (07:42)
[2024-04-27] MEDS: KETOROLAC 15 MG/ML 1 ML VIAL IVP STA (07:43)
[2024-04-27] MEDS: ONDANSETRON 4 MG/2 ML VIAL IVP STA ×2 (07:43→10:13)
[2024-04-27] MEDS: PANTOPRAZOLE 40 MG/10 ML VIAL IVP STA (07:43)
[2024-04-27 08:22] LABS: Partial Thromboplastin Time 22.3 sec (22.0-30.0); Prothrombin Time 10.6 sec (10.0-12.5)
[2024-04-27 08:24] LABS: Amorphous Sediment,Urine Moderate /hpf; Appearance,Urine Cloudy (Clear); Bacteria,Urine Rare /hpf; Bilirubin,Urine Negative (Negative); Blood,Urine Large (Negative); Color,Urine Light Yellow; Glucose,Urine (UA) Negative (Negative); Ketones,Urine Negative (Negative); Leukocyte Esterase,Urine Moderate (Negative); Mucus,Urine Rare /hpf; Nitrite,Urine Negative (Negative); Protein,Urine Negative (Negative); RBC,Urine <1 /hpf (0-5); Specific Gravity,Urine 1.016 (1.001-1.035); Squamous Epithelial Cell,Urine 6 /hpf (0-4); Urobilinogen,Urine <2.0 mg/dL (<2.0); WBC,Urine 5 /hpf (0-5)
[2024-04-27 08:33] LABS: Basophils % (A) 0 %; Eosinophils # (A) 0.1 k/uL (0-0.7); Eosinophils % (A) 2 %; HCT 41.1 % (34.0-46.0); HGB 13.5 gm/dL (11.4-16.0); Lymphocytes # (A) 1.5 k/uL (1.0-4.8); Lymphocytes % (A) 36 %; MCH 30.6 pg (25.0-35.0); MCHC 32.8 g/dL (31.0-37.0); MCV 93.1 fL (80.0-100.0); Mean Platelet Volume 7.9; Monocytes # (A) 0.2 k/uL (0-1.0); Monocytes % (A) 6 %; Neutrophils # (A) 2.3 k/uL (1.3-7.7); Neutrophils % (A) 54 %; Platelet Count 255 k/uL (150-450); RBC 4.42 m/uL (3.80-5.40); RDW 12.2 % (11.5-15.5); WBC 4.3 k/uL (3.8-10.6)
[2024-04-27 08:34] LABS: ALT 17 U/L (4-34); AST 27 U/L (14-36); African American GFR (CKD) >90 (>60 ml/min/1.73 sqM); Albumin 4.2 g/dL (3.5-5.0); Alkaline Phosphatase 71 U/L (38-126); Amylase 57 U/L (30-110); Anion Gap 7 mmol/L; Blood Urea Nitrogen 16 mg/dL (7-17); Calcium 9.2 mg/dL (8.4-10.2); Carbon Dioxide 22 mmol/L (22-30); Chloride 110 mmol/L (98-107); Glucose 87 mg/dL (74-99); Lipase 86 U/L (23-300); Non-African American GFR(CKD) >90 (>60 ml/min/1.73 sqM); Potassium 4.1 mmol/L (3.5-5.1); Sodium 139 mmol/L (137-145); Total Bilirubin 0.6 mg/dL (0.2-1.3); Total Protein 6.9 g/dL (6.3-8.2)
--- NOTE | 2024-04-27 08:38 | US ---
EXAMINATION TYPE: US pelvic complete transvag DATE OF EXAM: 04/27/2024 COMPARISON: NONE CLINICAL INDICATION: Female, 29 years old with history of eval for ovarian torsion. rt lower abd pain ; RLQ pain began last night TECHNIQUE: Transvaginal (TV). Transvaginal sonographic images were medically necessary to better as sess the following anatomy: Date of LMP: 04/24/24 EXAM MEASUREMENTS: Uterus: 8.3x4.0x5.2 cm Endometrial Stripe: 0.25 cm Right Ovary: 2.7x1.7x3.4 cm vol:8.0 ml Left Ovary: 2.1x1.8x1.7 cm vol: 3.2 Right ovary has much larger volume compared to left ovary 1. Uterus: Anteverted wnl 2. Endometrium: fluid noted within 3. Right Ovary: Right ovary has much larger volume compared to left ovary 4. Left Ovary: wnl Spectral, color and waveform doppler imaging shows good arterial and venous flow within the ovaries ; there is no evidence for ovarian torsion. 5. Bilateral Adnexa: Obscured by overlying bowel gas 6. Posterior cul-de-sac: free fluid IMPRESSION: Enlarged right ovary compared to the left. There is appropriate arterial and venous spectral waveform s to both ovaries. Correlate for torsion detorsion units asymmetrically increased size.
[2024-04-27] MEDS: MORPHINE SULFATE 4 MG/ML SYRINGE IVP STA (08:47)
--- NOTE | 2024-04-27 09:49 | CT ---
EXAMINATION TYPE: CT abdomen pelvis w con DATE OF EXAM: 04/27/2024 COMPARISON: 06/07/2022 HISTORY: RLQ pain since last night CT DLP: 543.9 mGycm CONTRAST: CT scan of the abdomen and pelvis is performed without Oral Contrast and with IV Contrast, patient in jected with 100 ml mL of Isovue 300. FINDINGS: LUNG BASES-: No visible nodule. No infiltrate. LIVER/GB: No calcified gallstones. No space occupying hepatic lesion. Biliary tree is of normal ca liber. PANCREAS: No inflammation. No distinct mass. SPLEEN: No splenic enlargement. No lesion seen. ADRENALS: No nodule. No thickening. KIDNEYS/BLADDER: No hydronephrosis. No nephrolithiasis. 1 cm left renal cortical cyst. There is dis tention of the urinary bladder without wall thickening this time. BOWEL: Nonvisualization of the appendix. Normal bowel caliber. No inflammation. GENITAL ORGANS: Tubal ligation changes noted. LYMPH NODES: No greater than 1cm abdominal or pelvic lymph nodes are appreciated. AORTA: No significant abnormality. OSSEOUS STRUCTURES: No significant abnormality is seen. OTHER: No significant additional abnormality is seen. IMPRESSION: 1. There is distention of the urinary bladder. Examination is otherwise within normal limits for acut e process appreciated at this time.
[2024-04-27] MEDS: ACET/COD 300 MG/30 MG STARTER PACK 6 TAB BTL PO STA (10:15)
[2024-04-27] MEDS: ONDANSETRON 4 MG ODT STARTER PACK 2 TAB BTL PO STA (10:15)
[2024-04-27 10:16] VITALS: BP 105/69; PULSE 62; RESP 16; TEMP 98
== END 2024-04-27 10:29 | disposition home or self-care (01) ==
LOC: EC 07:17
DX: N32.89 Other specified disorders of bladder (principal); Z88.8 Allergy status to other drugs, medicaments and biological substances; Z91.09 Other allergy status, other than to drugs and biological substances
CPT/HCPCS: 99285; 96374; 96375 ×3; 96376; 96361; 36415; 80053; 82150; 83605; 83690; 85025; 85610; 85730; 81001; 81025; 76856; 76830; 74177; J2270; J2405; J1885; S0119; Q9967; J2470; 99284